=== PATIENT | male | born 1955 | race Caucasian/White ===

== ENCOUNTER → 2019-12-23 09:21 | Outpatient (BNVA) | payer BC, SELFPAY | PROVIDERS: Family Provider Family Medicine; PCP Family Medicine; Visit Provider Family Medicine | DX: R30.0 Dysuria (principal) | CPT/HCPCS: 81003; 87077; 87086; 87186 ==

== ENCOUNTER → 2020-03-16 16:02 | Outpatient (BNVA) | payer BC, SELFPAY | PROVIDERS: Family Provider Family Medicine; PCP Family Medicine; Visit Provider Family Medicine | DX: R30.0 Dysuria (principal); R31.29 Other microscopic hematuria | CPT/HCPCS: 80053; 81001; 87077; 87086; 87186 ==

== ENCOUNTER → 2020-03-25 08:11 | Outpatient (BNVA) | payer BC, SELFPAY | PROVIDERS: Family Provider Family Medicine; PCP Family Medicine; Visit Provider Urology | DX: R30.0 Dysuria (principal); N30.90 Cystitis, unspecified without hematuria; R31.0 Gross hematuria; R33.9 Retention of urine, unspecified; N31.8 Other neuromuscular dysfunction of bladder; N40.1 Benign prostatic hyperplasia with lower urinary tract symptoms; N13.8 Other obstructive and reflux uropathy | CPT/HCPCS: 81001 ==

== ENCOUNTER 2020-04-08 08:23 | Outpatient (CLI) | payer MEDICARE, SELFPAY ==
--- NOTE | 2020-04-08 08:00 | US_ITS ---
WS: [id number] RENAL ULTRASOUND HISTORY: BPH COMPARISON: 02/11/2019 TECHNIQUE: 2-D and color Doppler imaging of the kidney submitted. Right kidney: 9.7 cm x 4.6 cm x 4.6 cm. Normal echogenicity with no hydronephrosis or mass. Left kidney: 10.0 cm x 5.4 cm x 5.2 cm. Normal echogenicity with no hydronephrosis or mass. Aorta: Normal. Urinary Bladder: Marked distention of the urinary bladder. Bladder wall is diffusely and mildly thick ened. Similar to the CT from 03/12/2019. Volume of 282 cubic cm. Prostate is enlarged and heterogeneous measuring 4.9 x 3.5 x 3.9 cm. US/US renal BI* [id number] IMPRESSION: 1. Normal renal ultrasound with no obstruction. 2. Moderately distended urinary bladder with diffuse mild bladder wall hypertr ophy.
== END 2020-04-08 08:24 | disposition home or self-care (01) ==
PROVIDERS: Family Provider Family Medicine; PCP Family Medicine; Visit Provider Urology
DX: N40.1 Benign prostatic hyperplasia with lower urinary tract symptoms (principal); R33.9 Retention of urine, unspecified
CPT/HCPCS: 76770; 81001

== ENCOUNTER 2020-09-05 08:41 | Outpatient (CLI) | payer MEDICARE, SELFPAY | END 2020-09-05 08:42 | disposition home or self-care (01) | LOC: LAB 06-25 12:42 | PROVIDERS: PCP Family Medicine; Visit Provider Urology | DX: R33.9 Retention of urine, unspecified (principal) | CPT/HCPCS: 80048 ==

== ENCOUNTER → 2020-09-07 09:11 | Outpatient (BNVA) | payer MEDICARE, SELFPAY | PROVIDERS: Family Provider Family Medicine; PCP Family Medicine; Visit Provider Urology | DX: R31.0 Gross hematuria (principal); R33.9 Retention of urine, unspecified; N40.1 Benign prostatic hyperplasia with lower urinary tract symptoms; N13.8 Other obstructive and reflux uropathy; N31.8 Other neuromuscular dysfunction of bladder; N30.90 Cystitis, unspecified without hematuria; R82.71 Bacteriuria | CPT/HCPCS: 87086 ==

== ENCOUNTER → 2021-09-25 15:56 | Outpatient (BNVA) | payer MEDICARE, SELFPAY | PROVIDERS: Family Provider Family Medicine; PCP Family Medicine; Visit Provider Nurse Practitioner Family | DX: N13.8 Other obstructive and reflux uropathy (principal); N40.1 Benign prostatic hyperplasia with lower urinary tract symptoms; R31.0 Gross hematuria | CPT/HCPCS: 81003; 87086 ==

== ENCOUNTER 2021-12-14 11:16 | Outpatient (CLI) | payer MEDICARE, SELFPAY ==
--- NOTE | 2021-12-14 11:15 | CT_ITS ---
WS: [id number] CT ABDOMEN AND PELVIS WITH AND WITHOUT CONTRAST HISTORY: GROSS HEMATURIA TECHNIQUE: Unenhanced 5 mm axial imaging first performed through the abdomen. Post contrast imaging t hrough the abdomen and pelvis. Oral contrast has been provided. Sagittal and coronal reformats are s ubmitted. All CT scans at [facility] use at least one of these dose optimization techniques: automated exposure control; mA and/or kV adjustment per patient size (includes targeted exams where d ose is matched to clinical indication); or iterative reconstruction. CONTRAST: Visipaque 320; 95 mL IV. DLP: 3053.89 mGy.cm COMPARISON: 03/12/2019 Lung bases are clear. Normal size heart. Small hiatal hernia. Normal size liver. There are numerous low-attenuation masses throughout the liver which were also ainsley ntified on 03/12/2019. The largest in the LEFT lobe measures 2.8 cm. No enhancing or enlarging mass. G allbladder is normally distended and contains stones. Normal spleen. Normal pancreas and adrenal glan ds. Mild atherosclerosis aorta with no aneurysm. SMA, celiac axis and portal vein are normally enhanc ing. Kidneys are normal size. There are small cortical hypodensities within the RIGHT kidney. These were p resent on the prior study. Stable and probably representing small cysts. There is mild bilateral jonas nephric stranding. Hyperdense nodule measuring 6 mm in the lower pole RIGHT kidney. No hydronephrosis or ureteral calcification or obstruction. No solid or enhancing mass. No uroepithelial lesions. The LEFT ureter is slightly smaller caliber. Ureters do not completely distended with contrast. Diffuse fecal retention throughout the colon. Numerous diverticula throughout the colon with no evide nce for acute diverticulitis. No obstructing colonic lesion. The appendix is normal. No small bowel o bstruction. Well-distended urinary bladder. There is diffuse wall thickening with mild enhancement along the RIGH T lateral and posterior urinary bladder. This bladder wall thickening was also described on 03/12/2019 . May be due to cystitis. Prostate gland is enlarged with numerous central prostate calcifications. P rostate encroaches into the urinary bladder. No pelvic adenopathy. No fractures. Numerous bone islands within the pelvis. CT/CT abdomen pelvis wo/w [id number] IMPRESSION: 1. No solid renal mass or obstruction. 2. Cholelithiasis without acute cholecystitis. 3. Asymmetric thickening of the RIGHT lateral bladder wall with enhancement. V blaire similar findings seen on the prior study from 2019. Suggest cystoscopy for further evaluation. Neoplasm versus cystitis. 4. Enlarged prostate gland with central calcifications. 5. Pandiverticulosis without acute diverticulitis. 6. Hepatic cysts.
== END 2021-12-14 11:17 | disposition home or self-care (01) ==
PROVIDERS: PCP Family Medicine; Visit Provider Urology
DX: R31.0 Gross hematuria (principal); R33.9 Retention of urine, unspecified; N13.8 Other obstructive and reflux uropathy; N40.1 Benign prostatic hyperplasia with lower urinary tract symptoms; K80.20 Calculus of gallbladder without cholecystitis without obstruction; N40.0 Benign prostatic hyperplasia without lower urinary tract symptoms; K57.92 Diverticulitis of intestine, part unspecified, without perforation or abscess without bleeding; K76.89 Other specified diseases of liver
CPT/HCPCS: 74178; 81003; 82565; 84520; Q9967

== ENCOUNTER → 2021-12-15 14:03 | Outpatient (BNVA) | payer MEDICARE, SELFPAY | PROVIDERS: PCP Family Medicine; Visit Provider Family Medicine | DX: Z13.6 Encounter for screening for cardiovascular disorders (principal); J45.909 Unspecified asthma, uncomplicated | CPT/HCPCS: 80053; 80061; 85025 ==

== ENCOUNTER → 2023-09-03 13:17 | Outpatient (BNVA) | payer MEDICARE, SELFPAY | PROVIDERS: PCP Family Medicine; Visit Provider Family Medicine | DX: Z13.6 Encounter for screening for cardiovascular disorders (principal); R35.1 Nocturia; J45.40 Moderate persistent asthma, uncomplicated; N13.8 Other obstructive and reflux uropathy; N40.1 Benign prostatic hyperplasia with lower urinary tract symptoms; Z80.0 Family history of malignant neoplasm of digestive organs | CPT/HCPCS: 80053; 80061; 84153; 85025 ==

== ENCOUNTER → 2023-09-10 13:45 | Outpatient (BNVA) | payer MEDICARE, SELFPAY | PROVIDERS: PCP Family Medicine; Referring Provider Family Medicine; Visit Provider Surgery | DX: Z12.11 Encounter for screening for malignant neoplasm of colon (principal); Z80.0 Family history of malignant neoplasm of digestive organs | CPT/HCPCS: 99024; 99203 ==

== ENCOUNTER → 2024-09-08 09:59 | Outpatient (BNVA) | payer MEDICARE, SELFPAY | PROVIDERS: PCP Family Medicine; Visit Provider Family Medicine | DX: N18.30 Chronic kidney disease, stage 3 unspecified (principal); Z12.5 Encounter for screening for malignant neoplasm of prostate | CPT/HCPCS: 80053; 85025; G0103 ==

== ENCOUNTER → 2024-10-12 07:54 | Outpatient (BNVA) | payer MEDICARE, SELFPAY | PROVIDERS: PCP Family Medicine; Visit Provider Surgery | DX: Z12.11 Encounter for screening for malignant neoplasm of colon (principal); R03.0 Elevated blood-pressure reading, without diagnosis of hypertension; Z80.0 Family history of malignant neoplasm of digestive organs | CPT/HCPCS: 99214 ==

== ENCOUNTER 2024-11-11 07:30 | Day surgery (SDC) | payer MEDICARE, SELFPAY ==
[2024-11-11 07:44] VITALS: BP 157/97; PULSE 87; RESP 18; TEMP 36.4; O2SAT 97
[2024-11-11] MEDS: sodium chloride 0.9% 500 ML 15 ML IV (07:55)
--- NOTE | 2024-11-11 08:34 | W.PM.OPSUD ---
Surgery/Procedure H&P Update DATE OF PROCEDURE: November 11, 2024 DATE H&P PERFORMED: 10/12/24 H&P UPDATE INFORMATION: I have reviewed H&P completed within last 30 days, I have examined patient prior to procedure and No changes to prior documentation PLANNED PROCEDURE: Operation Date: 11/11/24 08:30 Proposed Procedures p Colonoscopy 20217, [id number](Not Applicable) - Donovan Camarillo DO
--- NOTE | 2024-11-11 08:37 | ANES.PREANE2 ---
Pre-Anesthetic Assessment Height/Weight: Height 1.78 m Weight 83.007 kg Temp Pulse Resp BP Pulse Ox O2 Del Method 97.6 F 87 18 157/97 97 Room Air 11/11/24 07:44 11/11/24 07:44 11/11/24 07:44 11/11/24 07:44 11/11/24 07:44 11/11/24 07:44 Operation Date: 11/11/24 08:30 Proposed Procedures p Colonoscopy [id number], G0121(Not Applicable) - Donovan Camarillo DO Familial anesthetic complications: None Was Beta Nat taken within 24 hours: N/A Was Clonidine taken within 24 hours: N/A Last intake: Intake Last Liquid Date 11/10/24 Last Liquid Time 23:00 Last Solid Date 11/09/24 Last Solid Time 22:00 Social No alcohol and No tobacco Exam alert, oriented x 3, clear to auscultation bilaterally and regular rate & rhythm Airway Mallampati: Class II Dentition: false Pulmonary Asthma Chronic Renal Insufficiency Anesthetic Plan ASA status: 2 Anesthesia: MAC Risk of > 500 ml blood loss (7ml/kg in children): No Medications/Allergies Home Medications Medication Instructions Recorded Confirmed Last Taken Type albuterol sulfate 90 mcg/actuation 2 puff inhalation Q6H PRN 09/08/24 11/09/24 1 Week Ago Rx aerosol inhaler (Ventolin HFA) shortness of breath or wheezing #3 ~11/02/24 ea fluticasone fur. 200 mcg-umeclid 1 inh inhalation DAILY #180 ea 09/08/24 11/09/24 11/11/24 Rx 62.5 mcg-vilant 25 mcg inhalat.powder (Trelegy Ellipta) tamsulosin 0.4 mg capsule 0.8 mg (2 x 0.4 mg) PO DAILY #180 09/08/24 11/09/24 11/10/24 Rx caps Allergies Allergy/AdvReac Type Severity Reaction Status Date / Time No Known Allergies Allergy Verified 09/08/24 09:01 Current Medications Generic Name Dose Route Start Last Admin Trade Name Freq PRN Reason Stop Dose Admin Sodium Chloride 500 mls @ 15 mls/hr 11/11/24 07:34 11/11/24 07:55 Sodium Chloride 0.9% IV 11/12/24 07:33 15 mls/hr .Q24H PRN Administration COLONOSCOPY FLUIDS PFSH Anesthesia Medical History Mixed action and resting tremor saw neuro in past, s/e on BB; CKD (chronic kidney disease), stage II Screening for colorectal cancer Family history of colon cancer in mother Incomplete emptying of bladder Chronic poorly emptying bladder. Eventually gave up [facility] due to the dislike of performing the procedure. Seems to be tolerating without upper urinary tract deterioration. 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
[2024-11-11 09:19] VITALS: BP 125/83; PULSE 76; RESP 12; TEMP 36.1; O2SAT 96
[2024-11-11 09:34] VITALS: BP 118/70; PULSE 74; RESP 14; O2SAT 97
--- NOTE | 2024-11-11 09:50 | ANE.PACU2 ---
Inpatient post-anesthesia follow up: Airway intact: Yes Vital signs: Temperature 97.0 F Pulse Rate 74 Respiratory Rate 14 Blood Pressure 118/70 Pulse Oximetry 97 Oxygen Delivery Me thod Room Air Oxygen Flow Rate Fraction of Inspir ed Oxygen Hydration adequate: Yes Nausea and vomiting: No Pain level: 1 Mental status: Baseline
== END 2024-11-11 09:54 | disposition home or self-care (01) ==
PROVIDERS: Visit Provider Surgery
PROC: 0DJD8ZZ Inspection of Lower Intestinal Tract, Via Natural or Artificial Opening Endoscopic (ICD-10-PCS; CPT 45378; principal; 2024-11-11 08:30)
DX: Z12.11 Encounter for screening for malignant neoplasm of colon (principal); D12.2 Benign neoplasm of ascending colon; D12.3 Benign neoplasm of transverse colon; K64.8 Other hemorrhoids; K57.30 Diverticulosis of large intestine without perforation or abscess without bleeding; Z80.0 Family history of malignant neoplasm of digestive organs; Z79.899 Other long term (current) drug therapy; H91.90 Unspecified hearing loss, unspecified ear; Z87.891 Personal history of nicotine dependence; N18.30 Chronic kidney disease, stage 3 unspecified
CPT/HCPCS: 45385; 88305; J2704; J3490; J7040

== ENCOUNTER → 2024-11-26 13:11 | Outpatient (BNVA) | payer MEDICARE, SELFPAY | PROVIDERS: Visit Provider Surgery | DX: Z09 Encounter for follow-up examination after completed treatment for conditions other than malignant neoplasm (principal); D37.4 Neoplasm of uncertain behavior of colon; K64.8 Other hemorrhoids | CPT/HCPCS: 99214 ==

== ENCOUNTER 2025-05-18 14:09 | Outpatient (CLI) | payer MEDICARE, SELFPAY ==
--- NOTE | 2025-05-18 14:13 | XRR_ITS ---
PROCEDURE INFORMATION: Exam: XR Chest Exam date and time: 05/18/2025 2:30 PM Age: 70 years old Clinical indication: Cough; Additional info: 4 months cough TECHNIQUE: Imaging protocol: Radiologic exam of the chest. Views: 2 views. COMPARISON: CT abdomen pelvis wo/w [id number] 12/14/2021 12:08 PM FINDINGS: Lungs: There is platelike atelectasis and/or consolidation at both lung bases. Upper lungs are clear. Pleural spaces: Unremarkable. No pleural effusion. No pneumothorax. Heart/Mediastinum: Heart size is normal. Bones/joints: There are degenerative changes of the bony structures. XR/XR chest 2V* [id number] IMPRESSION: Bilateral platelike consolidation and/or atelectasis. Follow-up is recommended.
== END 2025-05-18 14:10 | disposition home or self-care (01) ==
PROVIDERS: PCP Family Medicine; Visit Provider Family Medicine
DX: R05.3 Chronic cough (principal); R91.8 Other nonspecific abnormal finding of lung field
CPT/HCPCS: 71046

== ENCOUNTER 2025-05-24 16:25 | Outpatient (CLI) | payer MEDICARE, SELFPAY ==
--- NOTE | 2025-05-24 16:30 | CT_ITS ---
WS: [id number] CT chest wo con [id number] HISTORY: abnormal cxr; chronic cough TECHNIQUE: Axial imaging performed through the thorax. Coronal and sagittal reformats are submitted. All CT scans at [facility] use at least one of these dose optimization techniques: automated exposure control; mA and/or kV adjustment per patient size (includes targeted exams where dose is matched to clinical indication); or iterative reconstruction. CONTRAST: None DLP: 371.75 mGy.cm COMPARISON: Chest radiograph 05/18/2025 Lungs and central airway: Dense area of consolidation in the RIGHT lower lobe. Masslike consolidation involving a large portion of the RIGHT lower lobe with a small amount of adjacent pleural effusion. There are a few small calcifications which may be pleural-based or within the lung parenchyma. Additional tree-in-bud airspace disease or lymphangitic spread continues from the superior aspect of the consolidation. There are a few areas of groundglass attenuation in the central lung extending into the RIGHT upper lobe. Circumferential narrowing of the proximal RIGHT lower lobe bronchus with a component of postobstructive atelectasis. Mild dependent changes at the LEFT lung base. Pleura: Small RIGHT pleural effusion. Heart and pericardium: Normal size heart with no pericardial effusion. Mediastinum and fernando: Mediastinal and hilar lymphadenopathy. Largest RIGHT paratracheal lymph node is 2.5 cm. Subcarinal lymph node 3.3 cm. Necrotic appearing mass at the RIGHT hilum measures 3.4 cm. This is contiguous with the mass in the RIGHT lower lobe. Prevascular lymph nodes indeterminate. Vessels: Small bilateral supraclavicular lymph nodes. Chest wall and lower neck: No soft tissue masses. Upper abdomen: There are numerous masses within the liver. Majority of these are highly suspicious for metastatic lesions. 3.5 cm cyst in the LEFT lobe. No adrenal mass. Spleen is not enlarged. Visualized stomach is normal. Osseous structures: Loss of the normal cortex involving the posterior manubrium. No mass identified. Mildly expansile lytic lesion LEFT lateral fourth rib. CT/CT chest wo con [id number] IMPRESSION: 1. Large dense opacification in the RIGHT lower lobe with adjacent tree-in-bud airspace disease or lymphangitic tumor. Mass extends into the RIGHT hilum and there is a small associated pleural effusion. Highly suspicious for neoplasm un til proven otherwise. Recommend bronchoscopy and PET/CT imaging. 2. Mediastinal and hilar lymphadenopathy. Smaller but indeterminate prevascula r and supraclavicular lymph nodes. 3. Highly suspicious for metastatic liver disease. Additional cysts are identi fied. 4. No adrenal mass. 5. Expansile lytic lesion LEFT lateral fourth rib with very subtle loss of nor mal cortex along the posterior manubrium. Metastatic lesions are not excluded. These can be further evaluated also by PET/CT.
== END 2025-05-24 16:26 | disposition home or self-care (01) ==
LOC: RAD 16:27
PROVIDERS: PCP Family Medicine; Visit Provider Family Medicine
DX: R05.3 Chronic cough (principal); R91.8 Other nonspecific abnormal finding of lung field; R16.0 Hepatomegaly, not elsewhere classified
CPT/HCPCS: 71250

== ENCOUNTER 2025-05-28 14:50 | Outpatient (CLI) | payer MEDICARE, SELFPAY ==
--- NOTE | 2025-05-28 15:00 | PETR_ITS ---
PROCEDURE INFORMATION: Exam: PET/CT Skull Base to Mid-thigh Exam date and time: 05/28/2025 4:08 PM Age: 70 years old Clinical indication: Abnormal findings; Large dense opacification in the right lower lobe with adjacent tree-in-bud airspace disease or lymphangitic tumor. Mass extends into the right hilum and there is a small associated pleural effusion. Highly suspicious for neoplasm until proven otherwise. Recommend bronchoscopy and pet/ct imaging, . expansile lytic lesion left lateral fourth rib with very subtle loss of normal cortex along the posterior manubrium. Metastatic lesions are not excluded; Additional info: New mass lung, liver; On CT LABS AND CLINICAL REPORTS: Glucose: 70 mg/dl Treatment strategy for malignancy (PET staging): Initial Staging (PI) TECHNIQUE: Imaging protocol: Following at least four-hour fasting and following the injection of radiopharmaceutical, low dose CT images were obtained. Then, PET images were obtained. Attenuation corrected images were constructed using the CT scan. Fused images of PET and CT were reviewed. The standardized uptake values (SUV) reported below are maximum values within a region of interest, expressed in gm/ml. Exam includes orbital meatal line to mid-thigh. SUV normalization method: BodyWeight Radiopharmaceutical: 10.91 mCi F-18 FDG (Fluorodeoxyglucose), IV. Time of imaging post radiopharmaceutical administration: 49 minutes Injection site: right ac COMPARISON: CT chest wo con [id number] 05/24/2025 4:43 PM FINDINGS: Brain: Visualized brain has normal physiologic uptake. Pharynx: No abnormal uptake. Larynx: No abnormal uptake. Lungs, pleura and trachea: Masslike area of increased FDG uptake within the right perihilar/infrahilar region, maximum SUV 8.4. The mass results in obliteration/obstruction of the bronchus intermedius and proximal right middle and lower lobe bronchi. There is abnormal ring-like increased FDG uptake throughout the right hilum, subcarinal and precarinal regions. There is an associated large right lower lobe consolidation with internal air bronchograms and innumerable clustered perilymphatic nodules. Overall consolidation and area of inflammation has a maximum SUV of 7.5. Heart: Normal physiologic uptake. Mediastinal space: No abnormal uptake. Liver: Innumerable FDG avid lesions involving both hepatic lobes (more than 30 lesions). Some lesions exhibit capsular retraction. Maximum SUV 15.1 obtained from a lesion in the caudate lobe. Additional scattered bilobar simple hepatic cysts are intermixed. Gallbladder and biliary ducts: No abnormal uptake. Cholelithiasis. Pancreas: Focal 1.0 cm hypermetabolic nodule within the pancreatic head/uncinate process, maximum SUV 9.2. Spleen: No abnormal uptake. Adrenal glands: No abnormal uptake. Kidneys and ureters: Normal physiologic uptake. Stomach and bowel: No abnormal uptake. Colonic diverticulosis without evidence of diverticulitis. Vasculature: No abnormal uptake. Lymph nodes: Hypermetabolic supraclavicular/lower neck, prevascular, mediastinal and right hilar lymphadenopathy, maximum SUV 14.1 obtained from a subcentimeter hypermetabolic right supraclavicular lymph node. Maximum SUV in the mediastinum is 11.1 obtained from an ill-defined 2.0 cm precarinal lymph node. Periportal and retrocaval hypermetabolic lymphadenopathy, maximum SUV 15.7 contained from a 1.4 cm jerrell hepatis lymph node. Skeleton: Left lateral rib FDG avid expansile lytic lesion with an associated small soft tissue component, maximum SUV 9.7. Additional focus of abnormal FDG uptake within the right lateral 8th rib, maximum SUV 6.2 and a smaller focus of mildly increased FDG uptake in the lateral 7th rib, maximum SUV 2.6. Soft tissues: No abnormal uptake in the visualized head, neck, chest, abdomen, pelvis, and extremities. METRICS: Mediastinal blood pool: Mean SUV of 2.0 Liver uptake: Mean SUV of 2.2 PET/PET skull to thigh INIT [id number] IMPRESSION: 1. Ill-defined FDG avid right perihilar/infrahilar mass resulting in obstruction/obliteration of the bronchus intermedius and proximal right middle and lower lobe bronchi, highly suspicious for primary pulmonary neoplasm. 2. FDG avid right basilar consolidation and perilymphatic nodules is likely combination of postobstructive pneumonia and tumoral infiltration/perilymphatic carcinomatosis. 3. Hypermetabolic supraclavicular/lower neck, prevascular, mediastinal, right hilar and perihepatic lymphadenopathy, presumed metastatic. 4. Innumerable FDG avid hepatic lesions involving bilateral hepatic lobes (more than 3 lesions), consistent with hepatic metastases. There are intermixed simple hepatic cysts throughout the liver. 5. FDG avid rib lesions involving the left lateral 5th rib and the right lateral 8th and 7th ribs, presumed metastatic. The left lateral 5th rib is lytic with a small associated soft tissue component. 6. Focal 1.0 cm hypermetabolic nodule within the pancreatic head/uncinate process. This may be a metastatic peripancreatic lymph node, although may also represent a pancreatic metastasis, not well assessed on this noncontrast examination.
== END 2025-05-28 14:51 | disposition home or self-care (01) ==
LOC: RAD 14:52
PROVIDERS: PCP Family Medicine; Visit Provider Family Medicine
DX: R91.8 Other nonspecific abnormal finding of lung field (principal); C78.7 Secondary malignant neoplasm of liver and intrahepatic bile duct; C34.81 Malignant neoplasm of overlapping sites of right bronchus and lung; J98.9 Respiratory disorder, unspecified; R59.0 Localized enlarged lymph nodes; M99.88 Other biomechanical lesions of rib cage; K86.81 Exocrine pancreatic insufficiency
CPT/HCPCS: 78815; A9552

== ENCOUNTER → 2025-06-01 08:39 | Outpatient (BNVA) | payer MEDICARE, SELFPAY | PROVIDERS: PCP Family Medicine; Visit Provider Family Medicine | DX: C80.1 Malignant (primary) neoplasm, unspecified (principal); C78.7 Secondary malignant neoplasm of liver and intrahepatic bile duct; R91.8 Other nonspecific abnormal finding of lung field | CPT/HCPCS: 80053; 85025; 85610; 85730; 99204 ==

== ENCOUNTER 2025-06-02 10:36 | Day surgery (SDC) | payer MEDICARE, SELFPAY ==
[2025-06-02] VITALS (10 sets, daily range): BP systolic 85–132; BP diastolic 61–74; PULSE 96–108; RESP 10–39; TEMP 36.6–37.4; O2SAT 91–97
--- NOTE | 2025-06-02 13:16 | ANES.PREANE2 ---
Pre-Anesthetic Assessment Height/Weight: Height 1.78 m Weight 77.111 kg Temp Pulse Resp BP Pulse Ox O2 Del Method 97.8 F 96 16 108/64 92 Room Air 06/02/25 10:52 06/02/25 10:52 06/02/25 10:52 06/02/25 10:52 06/02/25 10:52 06/02/25 10:52 Operation Date: 06/02/25 12:10 Proposed Procedures p Bronchoscopy with alveolar Lavage [id number] R91.8(Not Applicable) - Werner Farah MD s Ebus(Not Applicable) - Werner Farah MD Familial anesthetic complications: None Was Beta Nat taken within 24 hours: N/A Was Clonidine taken within 24 hours: N/A Last intake: Intake Last Liquid Date 06/01/25 Last Liquid Time 21:00 Last Solid Date 06/01/25 Last Solid Time 16:00 Social No alcohol and No tobacco Exam alert, oriented x 3 and regular rate & rhythm b/l wheeze Airway Mallampati: Class III Dentition: false Pulmonary Chronic Obstructive Pulmonary Disease Chronic Renal Insufficiency Anesthetic Plan ASA status: 3 Anesthesia: General Risk of > 500 ml blood loss (7ml/kg in children): No Medications/Allergies Home Medications ?Medication ?Instructions ?Recorded ?Confirmed ?Last Taken ?Type albuterol sulfate 90 mcg/actuation 2 puff inhalation Q6H PRN 09/08/24 06/02/25 06/01/25 Rx aerosol inhaler (Ventolin HFA) shortness of breath or wheezing #3 ea fluticasone fur. 200 mcg-umeclid 1 inh inhalation DAILY #180 ea 09/08/24 06/02/25 06/02/25 Rx 62.5 mcg-vilant 25 mcg inhalat.powder (Trelegy Ellipta) guaifenesin 1,200 mg tablet, 1,200 mg PO BID PRN Cough 06/01/25 06/02/25 06/01/25 History extended release 12 hr (Mucinex) ibuprofen 600 mg tablet 600 mg PO Q6H PRN Pain 06/01/25 06/02/25 06/01/25 History ciprofloxacin HCl 500 mg tablet 500 mg PO BID 5 days #10 tabs 06/02/25 06/02/25 Unknown Rx codeine 10 mg-guaifenesin 100 mg/5 10 ml PO Q12H #450 mL 06/02/25 06/02/25 Unknown Rx mL oral liquid tamsulosin 0.4 mg capsule 0.4 mg PO BID 06/02/25 06/02/25 06/02/25 History Allergies Allergy/AdvReac Type Severity Reaction Status Date / Time No Known Allergies Allergy Verified 06/02/25 08:24 Current Medications Generic Name Dose Route Start Last Admin Trade Name Gigiq PRN Reason Stop Dose Admin Sodium Chloride 1,000 mls @ 30 mls/hr 06/02/25 10:45 06/02/25 11:03 Sodium Chloride 0.9% IV 06/03/25 10:44 30 mls/hr .Q24H JR Administration PFSH Anesthesia Medical History Metastasis to liver of unknown origin Mass of right lung Persistent cough Family history of colon cancer in mother Tubular adenoma of colon Mixed action and resting tremor saw neuro in past, s/e on BB; CKD (chronic kidney disease), stage II Incomplete emptying of bladder Chronic poorly emptying bladder. Eventually gave up [facility] due to the dislike of performing the procedure. Seems to be tolerating without upper urinary tract deterioration. 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
[2025-06-02] MEDS: lidocaine 2% INJ 20 mL 40 ML (13:56)
--- NOTE | 2025-06-02 15:02 | PC.NURSE ---
Addendum entered by Anahy Nicholas RN 06/02/25 15:03: apc used, sn: [id number] Original Note: cryo used- sn; [id number]
--- NOTE | 2025-06-02 15:13 | XR_ITS ---
WS: [id number] Portable AP upright chest, 06/02/2025 Clinical Data: post bronch Comparison: Two-view chest, 05/18/2025 Findings: There is right lower lobe patchy opacity which may represent postobstructive atelectasis. There is a right hilar mass. There is left basilar opacity, less dense than on the right. The patient has a poor inspiratory effort. The heart is normal. No pneumothorax is seen. There are no nodules. Th ere are no pleural effusions. Monitor leads are on the chest wall. XR/XR chest 1V portable [id number] Impression: 1. Increase in right lower lobe patchy opacity compared to prior study. 2. Moderate left lower lobe patchy opacity which may represent atelectasis.
--- NOTE | 2025-06-02 15:26 | P.BOP_ITS ---
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 Werner Farah MD, FACP Interventional Pulmonogist
--- NOTE | 2025-06-02 15:26 | W.PM.BPON ---
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 Werner Farah MD, FACP Interventional Pulmonogist
[2025-06-02] MEDS: EPINEPHrine 1 MG in sodium chloride 0.9% 19 ML XX (15:27)
--- NOTE | 2025-06-02 16:20 | PC.NURSE ---
VRBO to Cristiana per Dr. Farah Augmentin 875mg-125mg PO x 7days, NO Refills. Spoke to Karamie Conversation between Dr. Farah and this selling underwriter, Cristiana states that pt had a cipro order called in today by Dr. Lupis Scott and would like to put back on the self if Augmentin is going to be used, Dr. Matthew verbalizes order to discontinue use of Cipro.
--- NOTE | 2025-06-02 17:10 | ANE.PACU2 ---
Inpatient post-anesthesia follow up: Airway intact: Yes Vital signs: Temperature 98.9 F Pulse Rate 104 Respiratory Rate 16 Blood Pressure 132/74 Pulse Oximetry 92 Oxygen Delivery Me thod Room Air Oxygen Flow Rate 2 Fraction of Inspir ed Oxygen Hydration adequate: Yes Nausea and vomiting: No Pain level: 1 Mental status: Baseline
--- NOTE | 2025-06-02 19:06 | PM.OP ---
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 Identity verification included a review of all relevant medical records, history, physical examination, medications, allergies, and previous anesthesia tolerance. Risks, benefits, sedation options, and associated risks were reviewed with the patient, and informed consent was obtained after addressing all questions. Time-Out: Immediately before the procedure, a time-out was conducted to confirm patient identification, procedure details, consent, image labeling, and the need for prophylactic antibiotics. This was verified by the physician, nurse, anesthesiologist, and labor conciliator. Outcome: The procedure was completed without difficulty, and the patient tolerated it well. Findings: A thorough airway exam was performed after passage of the bronchoscope. The larynx and vocal cords were anatomically normal. The trachea was anatomically normal. The right sided airway showed because of moderate amount of mucoid secretions that required therapeutic suctioning (80492). There was complete obstruction of the distal bronchus intermedius by endobronchial tumor.? The T scope was not able to bypass the lesion. The left sided airway was anatomically normal without endobronchial lesions. The therapeutic bronchoscope was removed and the EBUS scope was inserted (99965). Level 7 station was identified with the EBUS scope at the medial LMSB/RMSB and 5 passes were made using a 22G Olympus TBNA needle. Using the same TBNA needle track a cryoprobe 1.1 was passed for cryo TBBX biopsy of station level 7 after freezing for 5-10 seconds and we are able to obtain 5 samples (77174). Right hilar mass was identified with EBUS scope at the distal bronchus intermedius and 5 passes were made using 21/22-gauge Olympus TBNA needle. Then using the same TBNA needle track a cryoprobe 1.1 was passed for cryo TBBX biopsy of the right hilar mass after freezing for 5-10 seconds and we are able to obtain 5 samples (55979). EBUS scope was removed and exchanged for therapeutic scope. Endobronchial biopsy (40610) and tumor debulking (71265) using cryoprobe 1.7 mm was performed which resulted in near complete recanalization of the distal bronchus intermedius followed by balloon dilation using 8 ? 9 ? 10 elation balloon and dilated up to 9 mm which improved the patency of the airway as I was able to advance the probe to the distal airways including the right middle lobe and the right lower lobe. Then using the APC, superficial tumor ablation was performed which also achieved hemostasis. The bronchoscope was advanced until wedged at the desired location for bronchoalveolar lavage.? BAL was performed in the right lower lobe of the lung.? 90 mL of fluid were instilled.?40 mL were returned. (87042) Patient required a total of 10 cc of topical epinephrine (1 1: 20,000) to achieve hemostasis during tumor debulking [place] Bleeding Scale: Grade 2 Following completion of all diagnostic and therapeutic procedures, hemostasis was verified.? The scope was removed and procedure concluded In summary, the following procedures were performed: 96329 BAL, (Bronchoalveolar Lavage), 95055 EBBX (Endobronchial biopsies), 43733 TBBX, (Transbronchial biopsies, first lobe), 92922 TBBX, (Transbronchial biopsies, additional lobe) 18521 cEBUS 1-2 lesions, (Central curvelinear EBUS 1-2 lesions), ? 37877 Therapeutic aspiration of secretions, 07320 Dilation, Tracheal or Bronchial, (CRE Balloon, Elation balloon, Rigid bronchoscope dilation), 63706 endobronchial tumor debulking/destruction Patient was transfer to PACU and I reviewed the chest x-ray. I updated his . Werner Farah MD, FACP, FASN Interventional Pulmonary
[2025-06-04 02:57] LABS: Cyto Order Verification Order Verified
== END 2025-06-02 17:10 | disposition home or self-care (01) ==
PROVIDERS: PCP Family Medicine; Visit Provider Internal Medicine
PROC: (CPT 31624; principal; 2025-06-02 12:00)
PROC: BB4BZZZ Ultrasonography of Pleura (ICD-10-PCS; 2025-06-02 12:00)
DX: C34.91 Malignant neoplasm of unspecified part of right bronchus or lung (principal); J44.9 Chronic obstructive pulmonary disease, unspecified; N18.30 Chronic kidney disease, stage 3 unspecified; Z87.891 Personal history of nicotine dependence
CPT/HCPCS: 31624; 31625; 31628; 31630; 31632; 31641; 31645; 31652; 71045; 88112; 88173; 88305; 88342; 99204; J0169; J2704; J3010; J3490; J7030; J9999

== ENCOUNTER → 2025-06-04 09:32 | Outpatient (BNVA) | payer MEDICARE, SELFPAY | PROVIDERS: PCP Family Medicine; Visit Provider Student in an Organized Health Care Education/Training Program | DX: Z95.828 Presence of other vascular implants and grafts (principal) | CPT/HCPCS: 99204 ==

== ENCOUNTER → 2025-06-08 14:00 | Outpatient (BNVA) | payer MEDICARE, SELFPAY | PROVIDERS: PCP Family Medicine; Visit Provider Internal Medicine | DX: C34.01 Malignant neoplasm of right main bronchus (principal) | CPT/HCPCS: 99214 ==

== ENCOUNTER 2025-06-10 13:53 | Oncology outpatient (recurring) (ONCR) | payer MEDICARE, SELFPAY ==
[2025-06-02 10:53] LABS: Glucose Urine UA Negative (Normal); Nitrate Urine Negative (Negative); Specific Gravity, Urine 1.018 (1.005-1.030)
[2025-06-02 10:55] LABS: Add Urine Microscopic? YES
[2025-06-03] MEDS: gadobenate dimeglumine 20 mL vial 16 ML IV (15:09)
--- NOTE | 2025-06-03 16:00 | MR_ITS ---
WS: [id number] MRI HEAD WITH CONTRAST TECHNIQUE: Sagittal T1, T2 axial, T2 axial FLAIR, axial susceptibility weighted imaging, axial diffusion weighted images, and coronal T2 images were obtained. Pre and post-T1 axial and post T1 coronal images. ADC and FSPGR images. CLINICAL INFORMATION: Metastasis to liver COMPARISON: None. FINDINGS: Innumerable supra and infratentorial enhancing metastatic lesions the largest in the LEFT cerebellum measuring 8.5 x 7.4 mm with a tiny amount of edema. The remainder of the lesions are subcentimeter in size and some are very faint and tiny. 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 Additional peripheral cortical lesions also suspicious for leptomeningeal metastasis. No hydrocephalus. No significant mass effect. No evidence of restricted diffusion to suggest acute ischemia. Mild small vessel changes. Moderate parenchymal volume loss. Normal posterior fossa. Normal vascular flow voids at the skull base. No extra-axial fluid collections. Paranasal sinuses and mastoid air cells are well aerated. No hemosiderin on susceptibility-weighted images. MR/MR head wo/w con [id number] IMPRESSION: 1. Innumerable supra and infratentorial metastatic lesions worse involving the cerebellum. Largest lesion in the LEFT cerebellum measures approximately 8.5 x 7.4 mm. Mild associated edema with this lesion. The remainder of the lesions a re subcentimeter in size and some are very tiny and faint. 2. 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 In addition, there are a few tiny faint cortical lesi ons also suspicious for leptomeningeal metastasis. 3. No significant edema or mass effect. 4. Mild small vessel changes with moderate parenchymal volume loss. 5. No restricted diffusion to suggest acute ischemia.
--- NOTE | 2025-06-10 15:42 | N.ONRAD NP_ITS ---
Radiation Oncology New Patient Visit Patient: Blayne Mistry MR#: [id number] : 1955 Age: 70 Sex: Male Dictated by: Suhas Houston DO/SHAINA Date of Service: 06/10/2025 Referring Physician(s) : Dr. 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 Chief Complaint / History of Present Illness: This is a pleasant 70-year-old male in no acute distress since being seen for TNTC Brain Mets suggestive of SCLC component. This is a pleasant 70-year-old male who presented to PCP with 4-month history of persistent cough with productive yellow sputum at times, dyspnea, 15 pound weight loss. CXR on 05/18/2025 showed no evidence of disease. CT CHEST on 05/24/2025 showed RLL consolidation with pleural effusion, mediastinal hilar lymphadenopathy, liver mets, left fourth rib metastasis. Mediastinal and hilar lymphadenopathy, small prevascular and supraclavicular lymph nodes. Suspicious for liver disease. No adrenal mass. There was an expansile lytic lesion in the left lateral fourth rib with subtle loss of normal cortex along posterior manubrium PET/CT on 05/28/2025 showed RLL mass extending into the hilum, mediastinal and supraclavicular adenopathy, liver mets, rib mets. TN TC liver metastasis. There was rib lesions to include the left lateral fifth rib and the right lateral 8th and 7th ribs to the left lateral fifth rib that is lytic with a small mall associated soft tissue component. There was a 1 cm hyper metabolic nodule of the pancreatic head which may represent peripancreatic lymph node or may represent pancreatic metastasis. BRONCHOSCOPY on 06/02/2025 showed biopsy of station 7 that noted SCLC and MD SCC. Right hilar mass showed metastatic small cell carcinoma, metastatic squamous cell carcinoma was not significant. 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 The tumor was negative for Napsin A and TTF-1. The small cell component was positive for TTF-1, CD56, Synaptophysin.. It was negative for desmin, CK5, p63, p40, TRAM 29 and Napsin A. Current Medications: albuterol sulfate 90 mcg/actuation (Ventolin HFA) 2 puffs inhalation Q6H PRN [fenbenazole PO] zwixcheapai-uhskqsavk-wabbzfsp 200-62.5-25 mcg (Trelegy Ellipta) 1 inh inhalation DAILY guaifenesin ER (Mucinex) 1,200 mg PO BID PRN ibuprofen 600 mg PO Q6H PRN ivermectin mg PO DAILY tamsulosin 0.4 mg PO BID Allergies: No Known Allergies Allergy Medical History: No history of collagen vascular disease. No previous radiation therapy. Metastasis to liver of unknown origin Mass of right lung Persistent cough Family history of colon cancer in mother Tubular adenoma of colon Mixed action and resting tremor saw neuro in past, s/e on BB; CKD (chronic kidney disease), stage II Incomplete emptying of bladder Chronic poorly emptying bladder. Eventually gave up [facility] due to the dislike of performing the procedure. Seems to be tolerating without upper urinary tract deterioration. 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 Other Lung disease Social History: Smoking and tobacco/nicotine status: former use of tobacco/nicotine (former smoker 1 ppd x 20 years. 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 Vital Signs: Performed on 06/10/2025 2:26 PM BMI - 24.393 kg/m2 (high), Height - 70 in, Weight - 170 lbs, Temperature - 97.9 f, Pulse - 102 /min (high), Respiration - 16 /min, O2 Sat - 93 % (low), Pain - 0, Fatigue - 0 and BP - 118/ 73 mm(hg). Physical Exam: Alert and oriented times 3. No acute distress. No visual defects. Chest lungs are clear to auscultation with no intercostal retraction. Abdomen is soft nontender with no hepatosplenomegaly. Extremities show no pitting edema or clubbing. Negative Homans' sign. Vertebral exam shows no bony tenderness. Neurological shows gait to be normal. Dgorzr-oa-ypay is adequate. Performance Status: KPS 80 Pathology: Primary, c34.31 - malignant neoplasm of lower lobe, right bronchus or lung, Diagnosed 06/09/2025 (active) , Primary, c34.2 - malignant neoplasm of middle lobe, bronchus or lung, Diagnosed 06/09/2025 (active) , Primary, c79.31 - secondary malignant neoplasm of brain, Diagnosed 06/09/2025 (active) and Primary, c78.7 - secondary malignant neoplasm of liver and intrahepatic bile duct, Diagnosed 06/09/2025 (active) . Lab: Imaging: See HPI Impression: C34.31 - malignant neoplasm of lower lobe, right bronchus or lung, Diagnosed 06/09/2025 (active), C34.2 - malignant neoplasm of middle lobe, bronchus or lung, Diagnosed 06/09/2025 (active), C79.31 - secondary malignant neoplasm of brain, Diagnosed 06/09/2025 (active) and C78.7 - secondary malignant neoplasm of liver and intrahepatic bile duct, Diagnosed 06/09/2025 (active). NO DELIVERY COORDINATOR SYMP, TNTC BRAIN METS WITH MINIMAL EDEMA, TNTC LIVER METS, MULTIPLE RIB METS, RLL MASS WITH EXTENSION INTO THE MEDIASTINUM/SUPRACLAV LN, PRIOR TOBACCO ABUSE, BRONCH BX +MIXED SCLC/MD-SCC, 15# WT LOSS STAGE: IV- [id number] ICD-10: C79.31, C34.31, C78.7, C79.51 Plan: Options were discussed in detail with the patient and . They both wish to proceed with whole brain radiation. Patient has no DELIVERY COORDINATOR symptoms but was given Rx for dexamethasone 4 mg number, #60, 1 4 times daily if symptoms start. CT simulation done today along with head restraint mask. Plan of 3000 cGy in 10 fractions with liberal edge of the bony cavity Signed by: 06/10/2025 3:40:21 PM <<Signature on File>> Time spent with patient//record review/record preparation: 70 minutes CPT Code: CPT Code:
== END 2025-06-13 23:59 | disposition home or self-care (01) ==
PROVIDERS: PCP Family Medicine; Visit Provider Internal Medicine
DX: Z51.0 Encounter for antineoplastic radiation therapy (principal); C34.31 Malignant neoplasm of lower lobe, right bronchus or lung; C34.2 Malignant neoplasm of middle lobe, bronchus or lung; C78.7 Secondary malignant neoplasm of liver and intrahepatic bile duct; C79.31 Secondary malignant neoplasm of brain; Z87.891 Personal history of nicotine dependence
CPT/HCPCS: 70553; 77290; 77295; 77300; 77334; 81001; 87086; 99204; 99205; 99213

== ENCOUNTER 2025-06-11 13:37 | Outpatient (CLI) | payer MEDICARE, SELFPAY ==
--- NOTE | 2025-06-11 13:30 | USCV_ITS ---
Blayne Mistry Age: 70 Gender: M : 1955 Exam Date: 06/11/2025 14:02 Ordering Phys: Michelle Acosta MD Technologist: Exam Location: [facility] [place]ication: HIGH RISK MEDS BP: 130 / 80 HR: 88 Rhythm: Sinus Technical Quality: Adequate MEASUREMENTS (Male / Female) Normal Values 2D ECHO LV Diastolic Diameter PLAX 4.0 cm 4.2 - 5.9 / 3.9 - 5.3 cm IVS Diastolic Thickness 1.2 cm 0.6 - 1.0 / 0.6 - 0.9 cm IVS Systolic Thickness 1.7 cm LVPW Diastolic Thickness 1.1 cm 0.6 - 1.0 / 0.6 - 0.9 cm LVPW Systolic Thickness 1.5 cm LVOT Diameter 2.0 cm LV Ejection Fraction 2D Teich 65.8 % LV Ejection Fraction MOD 4C 60.2 % LV Ejection Fraction MOD 2C 69.3 % LV Ejection Fraction 2C AL 68.4 % LA Diameter 2.8 cm RA Systolic Volume 4C AL 30.9 ml RA Systolic Volume 4C MOD 29.6 ml Aorta at Sinotubular Diameter 2.8 cm IVC Diameter 2.2 cm DOPPLER AV Peak Velocity 115.1 cm/s LVOT Peak Velocity 99.0 cm/s AV Area Cont Eq vti 4.0 cm squared AV Area Cont Eq pk 2.8 cm squared MV Peak Velocity 71.8 cm/s MV Area PHT 5.6 cm squared TR Peak Velocity 173.0 cm/s TR Peak Gradient 12.0 mmHg TV Peak E Velocity 74.1 cm/s PV Peak Velocity 181.1 cm/s FINDINGS Left Ventricle Normal left ventricular cavity size. Normal left ventricular systolic function. Left ventricular ejection fraction is 60%. Mild left ventricular hypertrophy. Normal diastolic function. Right Ventricle Normal right ventricular size and systolic function. Normal right ventricular systolic pressure. Right Atrium Normal right atrial size. Left Atrium Normal left atrial size. Mitral Valve Structurally normal mitral valve. No mitral valve stenosis. No mitral valve regurgitation. Aortic Valve No aortic valve stenosis. No aortic valve regurgitation. Tricuspid Valve Trace tricuspid valve regurgitation. Pulmonic Valve No pulmonary valve stenosis. No pulmonary valve regurgitation. Pericardium No pericardial effusion. Aorta Normal size aortic root and proximal ascending aorta. IVC Normal IVC dimension with >50% respiratory change of the inferior vena cava. CONCLUSIONS 1. Normal biventricular cavity size and systolic function. LVEF 60%. 2. Mild concentric left ventricular hypertrophy 3. No significant valvular dysfunction. González Nino MD, FACC (Electronically Signed) Final Date: 13 June 2025 14:51 S
== END 2025-06-11 13:38 | disposition home or self-care (01) ==
LOC: RAD 13:42
PROVIDERS: PCP Family Medicine; Visit Provider Family Medicine
DX: R91.8 Other nonspecific abnormal finding of lung field (principal); C78.7 Secondary malignant neoplasm of liver and intrahepatic bile duct; C80.1 Malignant (primary) neoplasm, unspecified; I51.7 Cardiomegaly; R93.1 Abnormal findings on diagnostic imaging of heart and coronary circulation
CPT/HCPCS: 93306

== ENCOUNTER 2025-06-16 06:51 | Day surgery (SDC) | payer MEDICARE, SELFPAY ==
[2025-06-16] VITALS (8 sets, daily range): BP systolic 104–115; BP diastolic 63–75; PULSE 71–104; RESP 16–17; TEMP 36.6–36.7; O2SAT 93–96; BMI 23.6
--- NOTE | 2025-06-16 06:57 | SC_ITS ---
WS: [id number] C-arm fluoroscopy for infusion catheter placement, 06/16/2025 Clinical Data: Port-A-Cath placement Comparison: Portable chest, 06/02/2025 Findings: Dr. Hamlin inserted a right infusion catheter. SC/C-arm FL for CVA [id number] Impression: Insertion of right infusion catheter.
--- NOTE | 2025-06-16 07:06 | W.PM.OPSUD ---
Surgery/Procedure H&P Update DATE OF PROCEDURE: June 16, 2025 DATE H&P PERFORMED: 06/04/25 H&P UPDATE INFORMATION: I have reviewed H&P completed within last 30 days, I have examined patient prior to procedure and No changes to prior documentation PLANNED PROCEDURE: Operation Date: 06/16/25 08:15 Proposed Procedures p Insertion Central Venous Access Device Port a Cath Insertion(Not Applicable) - John Hamlin MD
--- NOTE | 2025-06-16 07:39 | ANES.PREANE2 ---
Pre-Anesthetic Assessment Height/Weight: Height 1.78 m Weight 74.843 kg Temp Pulse Resp BP Pulse Ox O2 Del Method 98.1 F 104 H 17 104/71 94 Room Air 06/16/25 07:08 06/16/25 07:08 06/16/25 07:08 06/16/25 07:08 06/16/25 07:08 06/16/25 07:08 Preop Diagnosis: Lung Cancer with mets to liver Operation Date: 06/16/25 08:15 Proposed Procedures p Insertion Central Venous Access Device Port a Cath Insertion(Not Applicable) - John Hamlin MD Familial anesthetic complications: none Was Beta Nat taken within 24 hours: N/A Was Clonidine taken within 24 hours: N/A Last intake: Intake Last Liquid Date 06/15/25 Last Liquid Time 22:00 Last Solid Date 06/15/25 Last Solid Time 20:00 Social No alcohol and No tobacco Exam alert, oriented x 3, clear to auscultation bilaterally and regular rate & rhythm Airway Cervical ROM: within normal limits Mallampati: Class II Dentition: false Pulmonary Chronic Obstructive Pulmonary Disease Lung Cancer CV/HEM None reported EF 60% Chronic Renal Insufficiency (stage 3) Hepatic None reported GI None reported Metabolic None reported Musc/skel None reported Neuropsych None reported Anesthetic Plan ASA status: 3 Anesthesia: General Other: Plan for General with LMA Risk of > 500 ml blood loss (7ml/kg in children): No Medications/Allergies Home Medications ?Medication ?Instructions ?Recorded ?Confirmed ?Last Taken ?Type albuterol sulfate 90 mcg/actuation 2 puff inhalation Q6H PRN 09/08/24 06/15/25 06/15/25 Rx aerosol inhaler (Ventolin HFA) shortness of breath or wheezing #3 ea fluticasone fur. 200 mcg-umeclid 1 inh inhalation DAILY #180 ea 09/08/24 06/15/25 06/15/25 Rx 62.5 mcg-vilant 25 mcg inhalat.powder (Trelegy Ellipta) guaifenesin 1,200 mg tablet, 1,200 mg PO BID PRN Cough 06/01/25 06/15/25 06/15/25 History extended release 12 hr (Mucinex) ibuprofen 600 mg tablet 600 mg PO Q6H PRN Pain 06/01/25 06/15/25 06/01/25 History tamsulosin 0.4 mg capsule 0.4 mg PO BID 06/02/25 06/15/25 06/15/25 History fenbenazole 300 mg PO DAILY 06/08/25 06/15/25 06/15/25 History ivermectin 6 mg tablet 6 mg PO DAILY 06/08/25 06/15/25 06/15/25 History dexamethasone 4 mg tablet 4 mg PO QID #60 tabs 06/10/25 06/15/25 Unknown Rx Allergies Allergy/AdvReac Type Severity Reaction Status Date / Time No Known Allergies Allergy Verified 06/16/25 07:07 Current Medications Generic Name Dose Route Start Last Admin Trade Name Freq PRN Reason Stop Dose Admin Sodium Chloride 1,000 mls @ 30 mls/hr 06/16/25 07:00 06/16/25 07:19 Sodium Chloride 0.9% IV 06/17/25 06:59 30 mls/hr .Q24H JR Administration PFSH Anesthesia Medical History (Updated 06/09/25 @ 09:18 by Tyler Baugh MD) Metastasis to liver of unknown origin Mass of right lung Persistent cough Family history of colon cancer in mother Tubular adenoma of colon Mixed action and resting tremor saw neuro in past, s/e on BB; CKD (chronic kidney disease), stage II Incomplete emptying of bladder Chronic poorly emptying bladder. Eventually gave up [facility] due to the dislike of performing the procedure. Seems to be tolerating without upper urinary tract deterioration. 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 Other Lung disease Social History Smoking and tobacco/nicotine status: former use of tobacco/nicotine (former smoker 1 ppd x 20 years. 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
[2025-06-16] MEDS: ceFAZolin 2,000 mg SDV 2000 MG IVP (07:57)
[2025-06-16] MEDS: BUPivacaine 0.25% INJ 10 mL INJECTION (08:33)
[2025-06-16] MEDS: lidocaine-epi 1% 20 mL INJ 10 ML INJECTION (08:34)
--- NOTE | 2025-06-16 08:35 | PM.OP ---
Operative Report Date of procedure: June 16, 2025 Pre-op diagnosis: Lung cancer Post-op diagnosis: same Post-op findings: Tip of catheter at atriocaval junction confirmed with intraoperative fluoroscopy Procedure done: Port-A-Cath placement. Intraoperative fluoroscopy interpretation. Implants: Port-A-Cath Specimens removed/disposition: N/A Pathology: none sent Pathology: N/A Surgeon: John Hamlin MD Automobile Service Station Manager: N/A Anesthesia: MAC Estimated blood loss (mL): 10 Complications: N/A Findings: Tip of catheter at atriocaval junction confirmed with intraoperative fluoroscopy. Condition: stable Disposition: same day Brief History: 70-year-old male with history of lung cancer. Needs port for chemotherapy. Discussed risk and benefits and patient agreed to proceed with Port-A-Cath placement. Procedure: Patient was brought into the operating room and a timeout was carried out. Procedure was done under MAC. Patient was placed supine with the arms tucked and in Trendelenburg. Patient was prepped and draped in the usual sterile fashion. Using ultrasound guidance the right internal jugular vein was accessed. A guidewire was then placed down to the atriocaval junction using fluoroscopy. The finder needle was removed and the guidewire was secured. I then turned my attention to creating a pocket over the right chest. Make sure to locally infiltrated using plain lidocaine and bupivacaine at the site of the pocket and throughout the tunnel site. I confirmed adequate hemostasis at the pocket. I then proceeded to place the port that was already preassembled and flushed with heparinized saline and the chest pocket. I tunneled the catheter from the chest to the neck at the site where I accessed the internal jugular vein. I measured and adjusted the length of the catheter so it would reach the atrial caval junction. At this point, I used a dilator to dilate the tract into the internal jugular vein using fluoroscopy. I removed the guidewire and proceeded to thread the central venous catheter through the introducer. In the process, I removed the sheath as a completely pushed the catheter into the internal jugular vein. I then confirmed adequate placement of the catheter by performing intraoperative interpretation of fluoroscopy. The tip of the catheter was confirmed to be placed in the atriocaval junction. There were no kinks noted throughout the trajectory of the catheter. I then proceeded to test the port and was satisfied with its functionality. I proceeded to flushed the catheter without any issues. I then hep-locked the port. Skin was closed using deep dermal 3-0 Vicryl, subcuticular 4-0 Monocryl, and Dermabond. Patient was then transferred to PACU without any complications.
[2025-06-16] MEDS: heparin, porcine 1,000 unit/mL INJ 10 mL 10000 UNIT XX (08:36)
--- NOTE | 2025-06-16 09:55 | ANE.PACU2 ---
Inpatient post-anesthesia follow up: Airway intact: Yes Vital signs: Temperature 98 F Pulse Rate 79 Respiratory Rate 17 Blood Pressure 112/75 Pulse Oximetry 95 Oxygen Delivery Me thod Room Air Oxygen Flow Rate Fraction of Inspir ed Oxygen Hydration adequate: Yes Nausea and vomiting: No Pain level: 1 Mental status: Baseline
== END 2025-06-16 09:56 | disposition home or self-care (01) ==
PROVIDERS: PCP Family Medicine; Visit Provider Student in an Organized Health Care Education/Training Program
PROC: (CPT 36561; principal; 2025-06-16 08:15)
DX: C34.90 Malignant neoplasm of unspecified part of unspecified bronchus or lung (principal); C78.7 Secondary malignant neoplasm of liver and intrahepatic bile duct; J44.9 Chronic obstructive pulmonary disease, unspecified; N18.30 Chronic kidney disease, stage 3 unspecified; D12.6 Benign neoplasm of colon, unspecified; Z87.891 Personal history of nicotine dependence
CPT/HCPCS: 36561; 76000; 77001; C1750; C1788; J0690; J1644; J2704; J3010; J3490; J7030; J9999

== ENCOUNTER → 2025-06-29 11:40 | Day surgery (SDC) | payer MEDICARE, SELFPAY ==
[2025-06-29 11:50] VITALS: BP 113/64; PULSE 102; RESP 18; TEMP 37.3; O2SAT 94
[2025-06-29 12:00] VITALS: BMI 23.6
--- NOTE | 2025-06-29 12:32 | ANES.PREANE2 ---
Pre-Anesthetic Assessment Height/Weight: Height 1.78 m Weight 74.843 kg Temp Pulse Resp BP Pulse Ox O2 Del Method 99.1 F 102 H 18 113/64 94 Room Air 06/29/25 11:50 06/29/25 11:50 06/29/25 11:50 06/29/25 11:50 06/29/25 11:50 06/29/25 11:50 Preop Diagnosis: liver CA Operation Date: 06/29/25 13:00 Proposed Procedures p Ultrasound Biopsy(Not Applicable) - DOCTOR NOT ON FILE Familial anesthetic complications: none Was Beta Nat taken within 24 hours: N/A Was Clonidine taken within 24 hours: N/A Last intake: Intake Last Liquid Date 06/28/25 Last Liquid Time 20:00 Last Solid Date 06/28/25 Last Solid Time 20:00 Social No alcohol and No tobacco Exam alert and oriented x 3 Airway Submandibular: within normal limits Cervical ROM: within normal limits Mallampati: Class I Dentition: false History/ROS No significant history except as noted Pulmonary Asthma, Chronic Obstructive Pulmonary Disease, Cough, Exertional Dyspnea and Shortness of Breath CV/HEM None reported Chronic Renal Failure (pt report no kidney issues. chart states CKD stage III) Hepatic liver CA GI None reported Metabolic None reported Musc/skel None reported Neuropsych None reported Anesthetic Plan ASA status: 3 Anesthesia: Anesthesia Evaluation and MAC Risk of > 500 ml blood loss (7ml/kg in children): No Medications/Allergies Home Medications ?Medication ?Instructions ?Recorded ?Confirmed ?Last Taken ?Type albuterol sulfate 90 mcg/actuation 2 puff inhalation Q6H PRN 09/08/24 06/29/25 06/29/25 Rx aerosol inhaler (Ventolin HFA) shortness of breath or wheezing #3 ea fluticasone fur. 200 mcg-umeclid 1 inh inhalation DAILY #180 ea 09/08/24 06/29/25 06/28/25 Rx 62.5 mcg-vilant 25 mcg inhalat.powder (Trelegy Ellipta) guaifenesin 1,200 mg tablet, 1,200 mg PO BID PRN Cough 06/01/25 06/29/25 06/28/25 History extended release 12 hr (Mucinex) ibuprofen 600 mg tablet 600 mg PO Q6H PRN Pain 06/01/25 06/29/25 06/01/25 History tamsulosin 0.4 mg capsule 0.4 mg PO BID 06/02/25 06/29/25 06/28/25 History fenbenazole 300 mg PO DAILY 06/08/25 06/29/25 06/28/25 History ivermectin 6 mg tablet 6 mg PO DAILY 06/08/25 06/29/25 06/28/25 History memantine 10 mg tablet 10 mg PO BID 6 months #360 tabs 06/22/25 06/29/25 06/28/25 Rx memantine 5 mg tablet 5 mg PO BID #14 tabs 06/22/25 06/29/25 06/28/25 Rx memantine 5 mg tablet 5 mg PO QAM 7 days #7 tabs 06/22/25 06/29/25 06/28/25 Rx dexamethasone 4 mg tablet 4 mg PO QID PRN FLAREUP 06/24/25 06/29/25 Unknown History Allergies Allergy/AdvReac Type Severity Reaction Status Date / Time No Known Allergies Allergy Verified 06/29/25 12:25 [facility] Anesthesia Medical History (Updated 06/22/25 @ 13:50 by Bryce Hilario MD) Metastasis to liver of unknown origin Mass of right lung Persistent cough Family history of colon cancer in mother Tubular adenoma of colon Mixed action and resting tremor saw neuro in past, s/e on BB; CKD (chronic kidney disease), stage II Incomplete emptying of bladder Chronic poorly emptying bladder. Eventually gave up [facility] due to the dislike of performing the procedure. Seems to be tolerating without upper urinary tract deterioration. 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 Other Lung disease Social History Smoking and tobacco/nicotine status: former use of tobacco/nicotine (former smoker 1 ppd x 20 years. 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
--- NOTE | 2025-06-29 13:03 | US_ITS ---
WS: [id number] Ultrasound-guided liver biopsy INDICATION: Liver metastasis TECHNIQUE: Ultrasound-guided liver biopsy. Anesthesia was present for sedation. The procedure including risks benefits and complications were discussed with the patient who agreed to proceed. A timeout was performed. Patient was prepped and draped in usual sterile fashion. After 1% lidocaine, using ultrasound guidance, approximately six 18 and 20-gauge cores were obtained of the RIGHT hepatic metastasis. Small area of expected postbiopsy blood products in the biopsy cavity measuring 11 mm stable 30 minutes post procedure. Patient tolerated the procedure well and LEFT the department in stable condition 1 hour post procedure. US/US biopsy liver [id number] IMPRESSION: Ultrasound-guided biopsy of the RIGHT liver metastasis. Pathology i s pending
[2025-06-29 13:15] LABS: INR 0.94 (0.8-1.2); Prothrombin Time 13.20 SECONDS (12.1-14.9)
[2025-06-29 13:59] VITALS: BP 99/60; PULSE 83; RESP 16; TEMP 36.9; O2SAT 96
[2025-06-29 14:14] VITALS: BP 104/64; PULSE 80; RESP 16; O2SAT 95
[2025-06-29 14:30] VITALS: BP 121/71; PULSE 83; RESP 16; O2SAT 97
--- NOTE | 2025-06-29 15:10 | ANE.PACU2 ---
Inpatient post-anesthesia follow up: Airway intact: Yes Vital signs: Temperature 98.4 F Pulse Rate 83 Respiratory Rate 16 Blood Pressure 121/71 Pulse Oximetry 97 Oxygen Delivery Me thod Room Air Oxygen Flow Rate Fraction of Inspir ed Oxygen Hydration adequate: Yes Nausea and vomiting: No Pain level: 1 Mental status: Baseline
== END | disposition home or self-care (01) ==
PROVIDERS: Radiology Neuroradiology; PCP Family Medicine; Visit Provider Internal Medicine
DX: C34.00 Malignant neoplasm of unspecified main bronchus (principal); K76.89 Other specified diseases of liver; C78.7 Secondary malignant neoplasm of liver and intrahepatic bile duct; J44.9 Chronic obstructive pulmonary disease, unspecified; N18.30 Chronic kidney disease, stage 3 unspecified; Z80.0 Family history of malignant neoplasm of digestive organs; D12.6 Benign neoplasm of colon, unspecified; Z87.891 Personal history of nicotine dependence
CPT/HCPCS: 36415; 47000; 76942; 85610; 88307; J2704; J3010; J7030; J9999

== ENCOUNTER → 2025-07-05 08:15 | Outpatient (BNVA) | payer MEDICARE, SELFPAY | PROVIDERS: PCP Family Medicine; Visit Provider Student in an Organized Health Care Education/Training Program | DX: Z98.890 Other specified postprocedural states (principal) | CPT/HCPCS: 99024 ==

== ENCOUNTER 2025-07-07 10:51 | Oncology outpatient (recurring) (ONCR) | payer MEDICARE, SELFPAY ==
--- NOTE | 2025-06-22 13:32 | ONCRAD TMN_ITS ---
Radiation Oncology Weekly Treatment Management Patient: Blayne Mistry MR#: [id number] : 1955 Attending Physician: Dr. Bryce Hilario Date of Service: 06/22/2025 Referring Physician(s) : Diagnosis: C34.31 - Malignant neoplasm of lower lobe, right bronchus or lung, Diagnosed 06/09/2025 (Active) C34.2 - Malignant neoplasm of middle lobe, bronchus or lung, Diagnosed 06/09/2025 (Active) C79.31 - Secondary malignant neoplasm of brain, Diagnosed 06/09/2025 (Active) C78.7 - Secondary malignant neoplasm of liver and intrahepatic bile duct, Diagnosed 06/09/2025 (Active) Radiotherapy to date: Course: WBRT, Treatment Site: WBRT, Ref. ID: Brain, Energy: 15X, Dose/Fx (cGy): 300, #Fx: 10, Dose Correction (cGy): 0, Total Dose Delivered (cGy): 1,200, Start Date: 06/17/2025, End Date: 06/22/2025, Elapsed Days: 5 Reason for visit: The patient is being seen today as part of their regularly scheduled weekly on treatment visits to assess for acute toxicities from radiotherapy. Review of Systems: Fatigued but otherwise without other symptoms. No Mcleod, N or V. Never needed to begin steroids. Breathing ok. Namenda was not started. Not smoking. Vital Signs: Performed on 06/22/2025 1:17 PM BMI - 22.929 kg/m2 (high), Height - 70 in, Weight - 159.8 lbs, Temperature - 98.3 f, Pulse - 88 /min, Respiration - 17 /min, O2 Sat - 96 %, Pain - 0, Fatigue - 0 and BP - 113/ 72 mm(hg). Physical Exam: omitted. Imaging: Radiation therapy imaging related to accurate target localization (i.e. KV, MV and CBCT) was reviewed. Appropriate changes, if any, were made to ensure treatment accuracy. Plan: Good tolerance of treatment. Will add Namenda. Continue radiation as planned. Signed by: Dr. Bryce Hilario 06/22/2025 1:30:45 PM
--- NOTE | 2025-06-29 11:39 | ONCRAD TMN_ITS ---
Radiation Oncology Weekly Treatment Management Patient: Day Mistry MR#: [id number] : 1955 Attending Physician: Aníbal Houston Date of Service: 06/29/2025 Referring Physician(s) : Diagnosis: C34.31 - Malignant neoplasm of lower lobe, right bronchus or lung, Diagnosed 06/09/2025 (Active) C34.2 - Malignant neoplasm of middle lobe, bronchus or lung, Diagnosed 06/09/2025 (Active) C79.31 - Secondary malignant neoplasm of brain, Diagnosed 06/09/2025 (Active) C78.7 - Secondary malignant neoplasm of liver and intrahepatic bile duct, Diagnosed 06/09/2025 (Active) Radiotherapy to date: Course: WBRT, Treatment Site: WBRT, Ref. ID: Brain, Energy: 15X, Dose/Fx (cGy): 300, Fx: 9 / 10, Dose Correction (cGy): 0, Total Dose Delivered (cGy): 2,700, Start Date: 06/17/2025, Elapsed Days: 12 Reason for visit: The patient is being seen today as part of their regularly scheduled weekly on treatment visits to assess for acute toxicities from radiotherapy. Review of Systems: Receiving WBRT without problems. Patient is not on steroids. Patient has a planned liver biopsy today. No voice complaints regarding his extensive disease. Vital Signs: Performed on 06/29/2025 11:18 AM BMI - 22.613 kg/m2, Height - 70 in, Weight - 157.6 lbs, Temperature - 98.4 f, Pulse - 98 /min, Respiration - 16 /min, O2 Sat - 94 % (low), Pain - 0, Fatigue - 0 and BP - 106/ 69 mm(hg). Physical Exam: AAOx3. Skin inact. Minimal hair loss Imaging: Radiation therapy imaging related to accurate target localization (i.e. KV, MV and CBCT) was reviewed. Appropriate changes, if any, were made to ensure treatment accuracy. Plan: Cont XRT Liver BX Today Signed by: Aníbal Houston 06/29/2025 11:38:31 AM
--- NOTE | 2025-07-01 08:29 | N.ONRD TS_ITS ---
Radiation Oncology Treatment Summary Patient: Blayne Mistry MR#: [id number] : 1955 Age: 70 Sex: Male Dictated by: Aníbal Houston Date of Service: 06/30/2025 Referring Physician(s) : Diagnosis: C34.31 - Malignant neoplasm of lower lobe, right bronchus or lung, Diagnosed 06/09/2025 (Active) C34.2 - Malignant neoplasm of middle lobe, bronchus or lung, Diagnosed 06/09/2025 (Active) C79.31 - Secondary malignant neoplasm of brain, Diagnosed 06/09/2025 (Active) C78.7 - Secondary malignant neoplasm of liver and intrahepatic bile duct, Diagnosed 06/09/2025 (Active) Radiotherapy to Date: Course: WBRT, Treatment Site: WBRT, Ref. ID: Brain, Energy: 15X, Dose/Fx (cGy): 300, #Fx: 10 / 10, Dose Correction (cGy): 0, Total Dose Delivered (cGy): 3,000, Start Date: 06/17/2025, End Date: 06/30/2025, Elapsed Days: 13 Clinical Summary: The patient tolerated RT well. Labs and wt stable. Plan: End of treatment today. Continue on the above medication until the skin reaction resolves. Follow up in one month. Signed by: Aníbal Houston>07/01/2025 8:29:02 AM <<Signature on File>>
[2025-07-06 09:17] LABS: Hematocrit 38.7 % (37-53); Hemoglobin 12.40 g/dL (11.27-16.99); Mean Corpuscular HGB Conc 32.0 g/dL (30-55); Mean Corpuscular Hemoglobin 28.0 pg (27-33); Mean Corpuscular Volume 87.4 fl (82-101); Nucleated Red Blood Cells % 0 %; Platelet Count 431 10^3/cmm (157-399); Red Blood Count 4.43 10^6/uL (3.85-5.65); White Blood Count 9.22 10^3/uL (3.29-11.43)
[2025-07-06 09:36] LABS: Alanine Aminotransferase 106 U/L (0-41); Albumin Level 3.5 g/dL (3.5-5.2); Alkaline Phosphatase 573 U/L (40-130); Anion Gap 17.9 (5-19); Aspartate Amino Transferase 75 U/L (0-40); Blood Urea Nitrogen 15 mg/dL (8-23); Calcium 9.1 mg/dL (8.5-10.5); Carbon Dioxide 21 mmol/L (22-29); Chloride 101 mmol/L (98-107); Globulin 3.2 g/dL (1.3-4.6); Glucose 99 mg/dL (65-115); Osmolality Calculated 281 mOsm/kg (285-295); Potassium 4.9 mmol/L (3.5-5.1); Sodium 135 mmol/L (136-145); Total Protein 6.7 g/dL (6.6-8.7)
[2025-07-06] MEDS: aprepitant 130 mg/18 ml SDV IVP (11:51)
[2025-07-06] MEDS: dexamethasone 4 mg/mL INJ 5 mL 12 MG IVP (12:02)
[2025-07-06] MEDS: diphenhydrAMINE 50 mg/mL SDV 1mL 25 MG IVP (12:04)
[2025-07-06] MEDS: [UNRECOGNIZED DRUG - OTHER] IV (12:19)
[2025-07-06] MEDS: SODIUM CHLORIDE 0.9% IV ×2 (12:19→14:34)
[2025-07-06] MEDS: durvalumab 1,500 MG in sodium chloride 0.9% 250 ML 280 MG IV (13:03)
[2025-07-06] MEDS: CARBOPLATIN IV (14:34)
[2025-07-06] MEDS: [UNRECOGNIZED DRUG - REMARK] 509.25 MG IV (15:48)
[2025-07-06] MEDS: sodium chloride 0.9% (100 ml) 100 ML 75 ML (15:57)
[2025-07-06 17:04] VITALS: BP 122/74; PULSE 89; RESP 17; TEMP 37.1; O2SAT 95
[2025-07-07] MEDS: ondansetron 2 mg/ML SDV 2 mL 8 MG IVP (11:27)
[2025-07-07] MEDS: [UNRECOGNIZED DRUG - OTHER] IV (11:34)
[2025-07-07] MEDS: SODIUM CHLORIDE 0.9% IV (11:34)
[2025-07-07] MEDS: [UNRECOGNIZED DRUG - REMARK] 509.25 MG IV (12:17)
[2025-07-07 14:01] LABS: Glucose Urine UA Negative (Normal); Nitrate Urine Negative (Negative); Specific Gravity, Urine 1.012 (1.005-1.030)
[2025-07-07 14:03] LABS: Add Urine Microscopic? YES
== END 2025-07-07 23:59 | disposition home or self-care (01) ==
PROVIDERS: Internal Medicine; Nurse Practitioner Family; PCP Family Medicine; Visit Provider Internal Medicine Medical Oncology
DX: Z51.11 Encounter for antineoplastic chemotherapy (principal); C34.31 Malignant neoplasm of lower lobe, right bronchus or lung; R39.89 Other symptoms and signs involving the genitourinary system; Z79.634 Long term (current) use of topoisomerase inhibitor; Z79.899 Other long term (current) drug therapy
CPT/HCPCS: 77336; 77387; 77412; 80053; 81001; 85025; 96365; 96367; 96375; 96413; 96417; 99024; 99215; A4222; J0185; J1100; J1200; J1448; J2405; J3490; J7030; J7040; J7050; J9045; J9173; J9181; J9999

== ENCOUNTER 2025-07-08 09:58 | Oncology outpatient (recurring) (ONCR) | payer MEDICARE, SELFPAY ==
[2025-07-08 10:08] VITALS: BP 97/60; PULSE 94; TEMP 37.3; O2SAT 94
[2025-07-08] MEDS: [UNRECOGNIZED DRUG - OTHER] IV (11:00)
[2025-07-08] MEDS: SODIUM CHLORIDE 0.9% IV (11:00)
[2025-07-08] MEDS: [UNRECOGNIZED DRUG - REMARK] 509.25 MG IV (11:41)
[2025-07-08] MEDS: pegfilgrastim 6 mg/0.6 mL Kit (onpro) SUBCUT (13:08)
== END 2025-07-08 23:59 | disposition home or self-care (01) ==
PROVIDERS: PCP Family Medicine; Visit Provider Internal Medicine Medical Oncology
DX: Z51.11 Encounter for antineoplastic chemotherapy (principal); C34.90 Malignant neoplasm of unspecified part of unspecified bronchus or lung; Z79.634 Long term (current) use of topoisomerase inhibitor; Z79.899 Other long term (current) drug therapy
CPT/HCPCS: 96375; 96377; 96413; 96417; A4222; J1448; J2469; J2506; J7030; J7050; J9181

== ENCOUNTER 2025-07-13 09:45 | Oncology outpatient (recurring) (ONCR) | payer MEDICARE, SELFPAY ==
[2025-07-13 10:10] LABS: Hematocrit 40.4 % (37-53); Hemoglobin 12.60 g/dL (11.27-16.99); Mean Corpuscular HGB Conc 31.2 g/dL (30-55); Mean Corpuscular Hemoglobin 27.6 pg (27-33); Mean Corpuscular Volume 88.6 fl (82-101); Nucleated Red Blood Cells % 0 %; Platelet Count 357 10^3/cmm (157-399); Red Blood Count 4.56 10^6/uL (3.85-5.65); White Blood Count 10.71 10^3/uL (3.29-11.43)
[2025-07-13 10:37] LABS: Alanine Aminotransferase 44 U/L (0-41); Albumin Level 3.8 g/dL (3.5-5.2); Alkaline Phosphatase 443 U/L (40-130); Anion Gap 16.2 (5-19); Aspartate Amino Transferase 29 U/L (0-40); Blood Urea Nitrogen 16 mg/dL (8-23); Calcium 9.3 mg/dL (8.5-10.5); Carbon Dioxide 23 mmol/L (22-29); Chloride 103 mmol/L (98-107); Creatinine Clr Calc Pharmacy 60.6978; Globulin 3.4 g/dL (1.3-4.6); Glucose 125 mg/dL (65-115); Osmolality Calculated 289 mOsm/kg (285-295); Potassium 4.2 mmol/L (3.5-5.1); Sodium 138 mmol/L (136-145); Total Protein 7.2 g/dL (6.6-8.7)
[2025-07-13 10:44] LABS: Slide Review Slide Review Perform
== END 2025-07-13 23:59 | disposition home or self-care (01) ==
LOC: ONCMED 09:46
PROVIDERS: PCP Family Medicine; Visit Provider Nurse Practitioner Family
DX: C34.90 Malignant neoplasm of unspecified part of unspecified bronchus or lung (principal); C78.7 Secondary malignant neoplasm of liver and intrahepatic bile duct; C79.51 Secondary malignant neoplasm of bone; C79.31 Secondary malignant neoplasm of brain; R05.9 Cough, unspecified; R53.83 Other fatigue; R06.02 Shortness of breath; R41.3 Other amnesia; R63.4 Abnormal weight loss; Z68.22 Body mass index [BMI] 22.0-22.9, adult; Z87.891 Personal history of nicotine dependence; Z79.899 Other long term (current) drug therapy
CPT/HCPCS: 36591; 80053; 85025; 99214

== ENCOUNTER 2025-07-27 07:29 | Oncology outpatient (recurring) (ONCR) | payer MEDICARE, SELFPAY ==
[2025-07-27 07:48] LABS: Hematocrit 40.9 % (37-53); Hemoglobin 13.10 g/dL (11.27-16.99); Mean Corpuscular HGB Conc 32.0 g/dL (30-55); Mean Corpuscular Hemoglobin 27.8 pg (27-33); Mean Corpuscular Volume 86.7 fl (82-101); Nucleated Red Blood Cells % 0 %; Platelet Count 553 10^3/cmm (157-399); Red Blood Count 4.72 10^6/uL (3.85-5.65); White Blood Count 11.57 10^3/uL (3.29-11.43)
[2025-07-27 08:11] LABS: Alanine Aminotransferase 19 U/L (0-41); Albumin Level 3.9 g/dL (3.5-5.2); Alkaline Phosphatase 253 U/L (40-130); Anion Gap 15.2 (5-19); Aspartate Amino Transferase 22 U/L (0-40); Blood Urea Nitrogen 11 mg/dL (8-23); Calcium 9.1 mg/dL (8.5-10.5); Carbon Dioxide 24 mmol/L (22-29); Chloride 102 mmol/L (98-107); Globulin 2.9 g/dL (1.3-4.6); Glucose 110 mg/dL (65-115); Osmolality Calculated 284 mOsm/kg (285-295); Potassium 4.2 mmol/L (3.5-5.1); Sodium 137 mmol/L (136-145); Total Protein 6.8 g/dL (6.6-8.7)
[2025-07-27] MEDS: aprepitant 130 mg/18 ml SDV IVP (09:31)
[2025-07-27] MEDS: diphenhydrAMINE 50 mg/mL SDV 1mL 25 MG IVP (09:31)
[2025-07-27] MEDS: dexamethasone 4 mg/mL INJ 5 mL 12 MG IVP (09:32)
[2025-07-27] MEDS: durvalumab 1,500 MG in sodium chloride 0.9% 250 ML 280 MG IV (10:26)
[2025-07-27] MEDS: [UNRECOGNIZED DRUG - OTHER] IV (11:42)
[2025-07-27] MEDS: SODIUM CHLORIDE 0.9% IV ×2 (11:42→12:13)
[2025-07-27] MEDS: CARBOPLATIN IV (12:13)
[2025-07-27] MEDS: [UNRECOGNIZED DRUG - REMARK] 509.25 MG IV (13:29)
[2025-07-27 15:02] VITALS: BP 105/67; PULSE 94; TEMP 36.1; O2SAT 96
[2025-07-29 23:58] LABS: TSH Receptor Binding Antibody <1.00 IU/L (< OR = 2.00)
== END 2025-07-27 23:59 | disposition home or self-care (01) ==
PROVIDERS: Nurse Practitioner Family; PCP Family Medicine; Visit Provider Internal Medicine Medical Oncology
DX: Z51.11 Encounter for antineoplastic chemotherapy (principal); Z51.12 Encounter for antineoplastic immunotherapy; C34.90 Malignant neoplasm of unspecified part of unspecified bronchus or lung; C78.7 Secondary malignant neoplasm of liver and intrahepatic bile duct; C79.51 Secondary malignant neoplasm of bone; C79.31 Secondary malignant neoplasm of brain; Z79.899 Other long term (current) drug therapy; Z79.52 Long term (current) use of systemic steroids; Z79.634 Long term (current) use of topoisomerase inhibitor; Z87.891 Personal history of nicotine dependence; Z92.3 Personal history of irradiation
CPT/HCPCS: 80053; 83516; 85025; 96366; 96367; 96375; 96413; 96415; 99214; A4222; J0185; J1100; J1200; J1448; J1453; J3490; J7030; J7040; J7050; J9045; J9173; J9181; J9999

== ENCOUNTER 2025-07-29 10:55 | Oncology outpatient (recurring) (ONCR) | payer MEDICARE, SELFPAY ==
[2025-07-28] MEDS: ondansetron 2 mg/ML SDV 2 mL 8 MG IVP (11:03)
[2025-07-28] MEDS: [UNRECOGNIZED DRUG - OTHER] IV (11:10)
[2025-07-28] MEDS: SODIUM CHLORIDE 0.9% IV (11:10)
[2025-07-28] MEDS: [UNRECOGNIZED DRUG - REMARK] 509.25 MG IV (11:49)
[2025-07-28 13:15] VITALS: BP 123/75; PULSE 93; RESP 18; TEMP 36.4; O2SAT 95
[2025-07-29 11:12] VITALS: BP 119/76; PULSE 78; RESP 16; TEMP 35.9; O2SAT 98
[2025-07-29] MEDS: [UNRECOGNIZED DRUG - OTHER] IV (12:01)
[2025-07-29] MEDS: SODIUM CHLORIDE 0.9% IV (12:01)
[2025-07-29] MEDS: [UNRECOGNIZED DRUG - REMARK] 509.25 MG IV (13:40)
[2025-07-29] MEDS: pegfilgrastim 6 mg/0.6 mL Kit (onpro) SUBCUT (14:53)
== END 2025-07-29 23:59 | disposition home or self-care (01) ==
PROVIDERS: PCP Family Medicine; Visit Provider Internal Medicine Medical Oncology
DX: Z51.11 Encounter for antineoplastic chemotherapy (principal); C34.90 Malignant neoplasm of unspecified part of unspecified bronchus or lung; Z79.634 Long term (current) use of topoisomerase inhibitor; Z79.899 Other long term (current) drug therapy
CPT/HCPCS: 96366; 96367; 96372; 96375; 96377; 96413; A4222; J1448; J2405; J2469; J2506; J7030; J7050; J9181

== ENCOUNTER 2025-08-18 09:00 | Oncology outpatient (recurring) (ONCR) | payer MEDICARE, SELFPAY ==
[2025-08-17 07:50] LABS: Hematocrit 39.3 % (37-53); Hemoglobin 12.60 g/dL (11.27-16.99); Mean Corpuscular HGB Conc 32.1 g/dL (30-55); Mean Corpuscular Hemoglobin 28.2 pg (27-33); Mean Corpuscular Volume 87.9 fl (82-101); Nucleated Red Blood Cells % 0 %; Platelet Count 449 10^3/cmm (157-399); Red Blood Count 4.47 10^6/uL (3.85-5.65); White Blood Count 8.29 10^3/uL (3.29-11.43)
[2025-08-17 08:03] LABS: Alanine Aminotransferase 14 U/L (0-41); Albumin Level 4.1 g/dL (3.5-5.2); Alkaline Phosphatase 147 U/L (40-130); Anion Gap 14.0 (5-19); Aspartate Amino Transferase 19 U/L (0-40); Blood Urea Nitrogen 12 mg/dL (8-23); Calcium 9.1 mg/dL (8.5-10.5); Carbon Dioxide 22 mmol/L (22-29); Chloride 105 mmol/L (98-107); Creatinine Clr Calc Pharmacy 56.3286; Globulin 2.5 g/dL (1.3-4.6); Glucose 102 mg/dL (65-115); Osmolality Calculated 284 mOsm/kg (285-295); Potassium 4.0 mmol/L (3.5-5.1); Sodium 137 mmol/L (136-145); Total Protein 6.6 g/dL (6.6-8.7)
[2025-08-17] MEDS: dexamethasone 4 mg/mL INJ 5 mL 12 MG IVP (08:52)
[2025-08-17] MEDS: diphenhydrAMINE 50 mg/mL SDV 1mL 25 MG IVP (08:56)
[2025-08-17 09:05] VITALS: BP 100/61; PULSE 79; RESP 17; TEMP 37.6; O2SAT 96
[2025-08-17] MEDS: SODIUM CHLORIDE 0.9% IV ×2 (09:42→11:28)
[2025-08-17] MEDS: [UNRECOGNIZED DRUG - OTHER] IV (09:42)
[2025-08-17] MEDS: durvalumab 1,500 MG in sodium chloride 0.9% 250 ML 280 MG IV (10:20)
[2025-08-17] MEDS: CARBOPLATIN IV (11:28)
[2025-08-17] MEDS: [UNRECOGNIZED DRUG - REMARK] 509.25 MG IV (12:46)
[2025-08-17 12:57] LABS: Thyroid Stimulating Hormone 2.32 uIU/mL (0.27-4.20)
[2025-08-17 14:06] VITALS: BP 102/64; PULSE 77; RESP 17; TEMP 36.2; O2SAT 95
[2025-08-18 09:10] VITALS: BP 98/66; PULSE 102; TEMP 36.3; O2SAT 97
[2025-08-18] MEDS: ondansetron 2 mg/ML SDV 2 mL 8 MG IVP (09:20)
[2025-08-18] MEDS: [UNRECOGNIZED DRUG - OTHER] IV (10:23)
[2025-08-18] MEDS: SODIUM CHLORIDE 0.9% IV (10:23)
[2025-08-18] MEDS: [UNRECOGNIZED DRUG - REMARK] 509.25 MG IV (11:19)
[2025-08-18] MEDS: FLU VACC TS2025-26(6MOS UP)/PF 45 MCG/0.5 ML SYRINGE IM (12:48)
[2025-08-18 12:53] VITALS: BP 100/56; PULSE 79; TEMP 37.2; O2SAT 94
== END 2025-08-18 23:59 | disposition home or self-care (01) ==
PROVIDERS: Nurse Practitioner Family; PCP Family Medicine; Visit Provider Internal Medicine Medical Oncology
DX: Z51.11 Encounter for antineoplastic chemotherapy (principal); C34.90 Malignant neoplasm of unspecified part of unspecified bronchus or lung; Z23 Encounter for immunization; Z79.899 Other long term (current) drug therapy; Z79.634 Long term (current) use of topoisomerase inhibitor
CPT/HCPCS: 36415; 80053; 84443; 85025; 90471; 90656; 96367; 96375; 96413; 96417; 99214; A4222; J1100; J1200; J1448; J1453; J2405; J3490; J7030; J7040; J7050; J9045; J9173; J9181; J9999

== ENCOUNTER 2025-08-19 10:01 | Oncology outpatient (recurring) (ONCR) | payer MEDICARE, SELFPAY ==
[2025-08-19 10:15] VITALS: BP 103/62; PULSE 77; RESP 18; TEMP 36.9; O2SAT 97
[2025-08-19] MEDS: [UNRECOGNIZED DRUG - OTHER] IV (11:05)
[2025-08-19] MEDS: SODIUM CHLORIDE 0.9% IV (11:05)
[2025-08-19] MEDS: [UNRECOGNIZED DRUG - REMARK] 550 MG IV (11:44)
[2025-08-19] MEDS: pegfilgrastim 6 mg/0.6 mL Kit (onpro) SUBCUT (12:59)
[2025-08-19 13:05] VITALS: BP 106/65; PULSE 80; RESP 18; TEMP 36.4; O2SAT 96
== END 2025-08-19 23:59 | disposition home or self-care (01) ==
PROVIDERS: PCP Family Medicine; Visit Provider Internal Medicine Medical Oncology
DX: Z51.11 Encounter for antineoplastic chemotherapy (principal); C34.90 Malignant neoplasm of unspecified part of unspecified bronchus or lung; Z79.634 Long term (current) use of topoisomerase inhibitor
CPT/HCPCS: 96365; 96367; 96375; 96377; 96413; A4222; J1448; J2469; J2506; J7030; J7050; J9181

== ENCOUNTER 2025-09-08 08:54 | Oncology outpatient (recurring) (ONCR) | payer MEDICARE, SELFPAY ==
[2025-09-06 08:10] LABS: Hematocrit 39.8 % (37-53); Hemoglobin 13.20 g/dL (11.27-16.99); Mean Corpuscular HGB Conc 33.2 g/dL (30-55); Mean Corpuscular Hemoglobin 30.5 pg (27-33); Mean Corpuscular Volume 91.9 fl (82-101); Nucleated Red Blood Cells % 0 %; Platelet Count 384 10^3/cmm (157-399); Red Blood Count 4.33 10^6/uL (3.85-5.65); White Blood Count 13.42 10^3/uL (3.29-11.43)
[2025-09-06 08:43] LABS: Alanine Aminotransferase 14 U/L (0-41); Albumin Level 4.1 g/dL (3.5-5.2); Alkaline Phosphatase 172 U/L (40-130); Anion Gap 13.8 (5-19); Aspartate Amino Transferase 13 U/L (0-40); Blood Urea Nitrogen 15 mg/dL (8-23); Calcium 9.6 mg/dL (8.5-10.5); Carbon Dioxide 22 mmol/L (22-29); Chloride 106 mmol/L (98-107); Globulin 2.9 g/dL (1.3-4.6); Glucose 107 mg/dL (65-115); Osmolality Calculated 287 mOsm/kg (285-295); Potassium 3.8 mmol/L (3.5-5.1); Sodium 138 mmol/L (136-145); Total Protein 7.0 g/dL (6.6-8.7)
[2025-09-06] MEDS: diphenhydrAMINE 50 mg/mL SDV 1mL 25 MG IVP (09:36)
[2025-09-06] MEDS: dexamethasone 4 mg/mL INJ 5 mL 12 MG IVP (09:37)
[2025-09-06] MEDS: SODIUM CHLORIDE 0.9% IV (10:33)
[2025-09-06] MEDS: [UNRECOGNIZED DRUG - OTHER] IV (10:33)
[2025-09-06] MEDS: durvalumab 1,500 MG in sodium chloride 0.9% 250 ML 280 MG IV (11:12)
[2025-09-06] MEDS: [UNRECOGNIZED DRUG - REMARK] 509.25 MG IV (13:49)
[2025-09-06 15:15] VITALS: BP 99/62; PULSE 79; RESP 17; TEMP 36.3; O2SAT 97
[2025-09-07] MEDS: ondansetron 2 mg/ML SDV 2 mL 8 MG IVP (09:32)
[2025-09-07] MEDS: [UNRECOGNIZED DRUG - OTHER] IV (10:03)
[2025-09-07] MEDS: SODIUM CHLORIDE 0.9% IV (10:03)
[2025-09-07] MEDS: [UNRECOGNIZED DRUG - REMARK] 509.25 MG IV (10:37)
[2025-09-07 11:46] VITALS: BP 85/64; PULSE 88; TEMP 36.1; O2SAT 95
[2025-09-07 12:34] VITALS: BP 92/58; PULSE 83
[2025-09-08 09:09] VITALS: BP 99/63; PULSE 80; RESP 17; TEMP 36.8; O2SAT 98
[2025-09-08] MEDS: [UNRECOGNIZED DRUG - OTHER] IV (09:36)
[2025-09-08] MEDS: SODIUM CHLORIDE 0.9% IV (09:36)
[2025-09-08] MEDS: [UNRECOGNIZED DRUG - REMARK] 509.25 MG IV (10:23)
[2025-09-08 11:46] VITALS: BP 98/59; PULSE 70; TEMP 36.3; O2SAT 96
[2025-09-08] MEDS: pegfilgrastim 6 mg/0.6 mL Kit (onpro) SUBCUT (11:50)
== END 2025-09-12 23:59 | disposition home or self-care (01) ==
PROVIDERS: Nurse Practitioner Family; PCP Family Medicine; Visit Provider Internal Medicine Medical Oncology
DX: Z51.11 Encounter for antineoplastic chemotherapy (principal); C34.90 Malignant neoplasm of unspecified part of unspecified bronchus or lung; Z79.634 Long term (current) use of topoisomerase inhibitor; Z79.899 Other long term (current) drug therapy
CPT/HCPCS: 80053; 85025; 96367; 96368; 96375; 96377; 96413; 96417; 99214; A4222; J1100; J1200; J1448; J1453; J2405; J2469; J2506; J3490; J7030; J7040; J7050; J9045; J9173; J9181; J9999

== ENCOUNTER → 2025-09-15 09:36 | Outpatient (BNVA) | payer MEDICARE, SELFPAY | PROVIDERS: PCP Family Medicine; Visit Provider Nurse Practitioner | DX: R39.89 Other symptoms and signs involving the genitourinary system (principal) | CPT/HCPCS: 81000; 87077; 87086; 87184 ==

== ENCOUNTER 2025-09-27 07:30 | Oncology outpatient (recurring) (ONCR) | payer MEDICARE, SELFPAY ==
--- NOTE | 2025-09-24 11:00 | MR_ITS ---
WS: [id number] MRI HEAD WITH CONTRAST TECHNIQUE: Sagittal T1, T2 axial, T2 axial FLAIR, axial susceptibility weighted imaging, axial diffusion weighted images, and coronal T2 images were obtained. Pre and post-T1 axial and post T1 coronal images. ADC and FSPGR images. CLINICAL INFORMATION: small cell lung cancer COMPARISON: 06/03/2025 FINDINGS: No evidence of restricted diffusion to suggest acute ischemia. Ventricular system and basal cisterns are patent. Previously described enhancing metastatic lesions have significantly improved with no visualized residual enhancing lesions. No enhancing lesions visualized today. No evidence of progressive disease. Interval increase in the periventricular T2 patchy signal normality compatible with treatment related changes. Small vessel changes in the felix. Moderate parenchymal volume loss. No hemosiderin. Tiny chronic lacunar infarcts LEFT cerebellum. LEFT mastoid effusion. Paranasal sinuses are well aerated. Normal posterior nasopharynx. No hemosiderin. MR/MR head wo/w con [id number] IMPRESSION: 1. No visualized residual enhancing lesions today compatible with interval res ponse to therapy 2. Increased periventricular T2 signal abnormality compatible with treatment r elated changes. Small vessel changes in the felix. 3. Moderate parenchymal volume loss. 4. No other acute findings.
[2025-09-24] MEDS: gadobenate dimeglumine 20 mL vial 14 ML IV (12:00)
--- NOTE | 2025-09-24 12:30 | PETR_ITS ---
PROCEDURE INFORMATION: Exam: PET/CT Skull Base to Mid-thigh Exam date and time: 09/24/2025 1:26 PM Age: 70 years old Clinical indication: Condition or disease; Primary cancer: Small cell lung cancer; Prior surgery; Surgery date: 6+ months; Surgery type: Cataracts, hernia, port LABS AND CLINICAL REPORTS: Glucose: 90 mg/dl Treatment strategy for malignancy (PET staging): Restaging (PS) TECHNIQUE: Imaging protocol: Following at least four-hour fasting and following the injection of radiopharmaceutical, low dose CT images were obtained. Then, PET images were obtained. Attenuation corrected images were constructed using the CT scan. Fused images of PET and CT were reviewed. The standardized uptake values (SUV) reported below are maximum values within a region of interest, expressed in gm/ml. Exam includes orbital meatal line to mid-thigh. SUV normalization method: BodyWeight Radiopharmaceutical: 9.16 mCi F-18 FDG (Fluorodeoxyglucose), IV. Time of imaging post radiopharmaceutical administration: 46 minutes Injection site: right forearm COMPARISON: PT PET skull to thigh INIT [id number] 05/28/2025 4:08 PM FINDINGS: Tubes, catheters and devices: Right chest port terminates at the superior cavoatrial junction. Brain: Visualized brain has normal physiologic uptake. Pharynx: No abnormal uptake. Larynx: No abnormal uptake. Lungs, pleura and trachea: Developed 2.4 cm right upper lobe ground-glass opacity on axial image 94 with very low-level FDG uptake showing SUV max 2.0. Resolved FDG avid right lower lobe consolidation. Bilateral lower lobe platelike atelectasis and/or scarring. Stable 3 mm right upper lobe nodule on axial image 115 below size threshold for accurate FDG assessment. Bilateral calcified granulomata. Heart: Normal physiologic uptake. Mediastinal space: No abnormal uptake. Liver: Near complete resolution of FDG avid liver lesions with residual FDG avid focus at the right lobe showing SUV max 5.3 on axial image 161. Low-level FDG avid focus at the inferior right lobe shows SUV max 4.0 on axial image 176. Multiple photopenic hepatic cysts and non FDG avid subcentimeter hypodensities too small to characterize, some of which appear to correspond to previously FDG avid metastases. Gallbladder and biliary ducts: No abnormal uptake. Cholelithiasis. Pancreas: No abnormal uptake. Spleen: No abnormal uptake. Adrenal glands: No abnormal uptake. Kidneys and ureters: Normal physiologic uptake. Stomach and bowel: No abnormal uptake. Colonic diverticulosis without findings of diverticulitis. Urinary bladder: Mildly increased asymmetric right urinary bladder wall thickening measures 8 mm thickness on axial image 237. No convincing associated FDG avidity. Reproductive: Prostatomegaly with developed diffuse FDG uptake showing SUV max 4.0. Vasculature: No abnormal uptake. Lymph nodes: Largely resolved mediastinal and right hilar FDG avid lymphadenopathy with residual low-level uptake at nonenlarged precarinal node (7 mm in the short axis on axial image 102 with SUV max 3.0, previously 20 mm with SUV max 11.1) and SUV max 3.2 at the right hilum on axial image 109, previously 13.1. Skeleton: Lateral left 5th rib and lateral right 8th rib lesions show non FDG avid sclerosis (previously FDG avid lytic lesions) compatible with treated metastases. Developed non FDG avid sclerosis also at the lateral right 7th rib is also compatible with treated metastasis. Developed diffuse FDG uptake along the axial skeletal system without discrete underlying CT abnormality. Degenerative change along the axial skeletal system and right hip. Stable scattered non FDG avid, nonaggressive denser sclerotic foci suggestive of bone islands. Soft tissues: No abnormal uptake in the visualized head, neck, chest, abdomen, pelvis, and extremities. METRICS: Mediastinal blood pool: SUV mean 2.3 Liver uptake: SUV mean 2.6 PET/PET skull to thigh SUBS [id number] IMPRESSION: 1. Compared to 05/28/2025, excellent partial response with resolved FDG avid right hilar/infrahilar mass and resultant right lower lobe consolidation. 2. Largely resolved mediastinal and right hilar lymphadenopathy with residual low-level uptake at precarinal and right hilar nodes. No new or worsening lymphadenopathy. 3. Largely resolved hepatic metastatic disease with couple remaining FDG-avid lesions. Multiple non FDG avid subcentimeter hypodensities correspond to previously FDG avid metastases. No new or worsening lesions. 4. Bilateral rib non FDG-avid sclerotic foci compatible with treated metastases. 5. Diffuse FDG uptake along the axial skeletal system likely represents benign hyperplasia/therapeutic change. 6. Prostatomegaly with developed diffuse FDG uptake suspected to be inflammatory. 7. Mildly increased asymmetric right urinary bladder wall thickening is nonspecific, neoplasm not excluded although no convincing associated FDG avidity.
[2025-09-27 07:54] LABS: Hematocrit 39.7 % (37-53); Hemoglobin 12.90 g/dL (11.27-16.99); Mean Corpuscular HGB Conc 32.5 g/dL (30-55); Mean Corpuscular Hemoglobin 29.7 pg (27-33); Mean Corpuscular Volume 91.3 fl (82-101); Nucleated Red Blood Cells % 0 %; Platelet Count 531 10^3/cmm (157-399); Red Blood Count 4.35 10^6/uL (3.85-5.65); White Blood Count 8.45 10^3/uL (3.29-11.43)
[2025-09-27 08:23] LABS: Alanine Aminotransferase 10 U/L (0-41); Albumin Level 4.0 g/dL (3.5-5.2); Alkaline Phosphatase 127 U/L (40-130); Anion Gap 14.1 (5-19); Aspartate Amino Transferase 14 U/L (0-40); Blood Urea Nitrogen 15 mg/dL (8-23); Calcium 9.1 mg/dL (8.5-10.5); Carbon Dioxide 24 mmol/L (22-29); Chloride 103 mmol/L (98-107); Creatinine Clr Calc Pharmacy 60.3269; Globulin 2.7 g/dL (1.3-4.6); Glucose 117 mg/dL (65-115); Osmolality Calculated 286 mOsm/kg (285-295); Potassium 4.1 mmol/L (3.5-5.1); Sodium 137 mmol/L (136-145); Thyroid Stimulating Hormone 3.24 uIU/mL (0.27-4.20); Total Protein 6.7 g/dL (6.6-8.7)
[2025-09-27] MEDS: durvalumab 1,500 MG in sodium chloride 0.9% 250 ML 280 MG IV (09:41)
[2025-09-27 10:51] VITALS: BP 97/61; PULSE 82; RESP 17; TEMP 36.3; O2SAT 99
== END 2025-09-27 23:59 | disposition home or self-care (01) ==
PROVIDERS: Internal Medicine Medical Oncology; PCP Family Medicine; Visit Provider Nurse Practitioner Family
DX: Z51.12 Encounter for antineoplastic immunotherapy (principal); C34.90 Malignant neoplasm of unspecified part of unspecified bronchus or lung; C79.31 Secondary malignant neoplasm of brain; C79.51 Secondary malignant neoplasm of bone; C78.7 Secondary malignant neoplasm of liver and intrahepatic bile duct; Z79.899 Other long term (current) drug therapy; Z92.3 Personal history of irradiation; Z87.891 Personal history of nicotine dependence; Z92.21 Personal history of antineoplastic chemotherapy; Z53.9 Procedure and treatment not carried out, unspecified reason
CPT/HCPCS: 70553; 78815; 80053; 84443; 85025; 96413; 99214; A4222; A9552; A9577; J7050; J9173

== ENCOUNTER → 2025-10-05 10:46 | Outpatient (BNVA) | payer MEDICARE, SELFPAY | PROVIDERS: PCP Family Medicine; Visit Provider Family Medicine | DX: R39.9 Unspecified symptoms and signs involving the genitourinary system (principal) | CPT/HCPCS: 81000 ==